=== PATIENT | male | born 1945 | race Caucasian/White ===

== ENCOUNTER 2017-09-01 07:37 | Inpatient (IN) | payer MEDICARE, MEDICAID ==
--- NOTE | 2017-09-01 08:10 | ED Physician Chart ---
ED Chief Complaint/HPI - Patient Information Date Seen:: 09/01/17 Time Seen:: 08:00 Chief Complaint:: Pt is here for G-tube replacement. History of Present Illness:: Brought in by ambulance from nursing facility because his G-tube was accidentally pulled out. A Zavala catheter was already put in place to keep gastrostomy stoma open. Pt appears to be comfortable without distress. Pt has h/ o dementia and is not cooperative; thus, H & P are limited. Info is primarily from review of limited transfer documents. Allergies:: Allergies Allergy/AdvReac Type Severity Reaction Status Date / Time Sulfa (Sulfonamide Allergy Verified 09/01/17 08:03 Antibiotics) Vitals:: see Nurse Note. Historian:: Patient Family MD/PCP:: Dr. Welch. LMP:: N/A Review:: Nurse's Note Reviewed, Transfer documents Reviewed ED Review of Systems - Review of Systems General/Constitutional: Other (Pt does not cooperate for ROS.) ED Past Medical History - Past Medical History Past Medical History: DM, CVA/TIA, Dyslipidemia, PUD/GERD, Dementia (with Alzheimer's Dz.), Other (Metaboic encephalopathy.) Family History: Other (Pt does not cooperate to provide info on FHx.) Social History: Care Facility, Other (Pt does not cooperate to provide info on SHx.) Surgical History: PEG/GTube Psychiatricy History: Dementia Medication: Reviewed Family Medical History - Family Member Father History Unknown: Yes Ethnicity: Non- Living Status: Unknown ED Physical Exam - Physical Examination General/Constitutional: Awake, Well-developed, well-nourished, No distress, Non- toxic appearing Other Gen/Cons comments:: Breathes comfortably, responds to voice and tactile stimuli. Pt is uncooperative and at times agitated. Head: Atraumatic Eyes: Lids, conjuctiva normal, PERRL, EOMI Skin: No rash, No lymphadenopathy ENMT: External ears, nose nl, Nasal exam nl, Oropharynx nl Neck: Nontender, Full ROM w/o pain, No JVD, No nuchal rigidity, No mass, No stridor Respiratory: Nl effort/Exclusion, Clear to Auscultation, No Wheeze/Rhonchi/Rales Cardio Vascular: RRR, No murmur, gallop, rubs GI: No tenderness/rebounding/guarding, No organomegaly, Nondistended, No mass/ bruits Other GI comments:: Abdomen is soft. Gastrostomy noticed with catheter in place in upper abdomen. Extremities: No tenderness or effusion, No edema Other Neuro/Psych comments:: Alert and responds to voice and tactile stimuli. Spontaneous movements noticed in all 4 extremities. Pt does not cooperate for full neurological exam. ED Labs/Radiology/EKG Results - Lab Results Results: Laboratory Tests 09/01/17 09/01/17 09/01/17 10:12 10:15 10:15 WBC 7.7 RBC 4.45 Hgb 14.3 Hct 43.3 MCV 97.3 MCH 32.0 H MCHC Differential 32.9 RDW 13.5 Plt Count 205 MPV 7.9 Neutrophils % 69.0 Lymphocytes % 23.9 Monocytes % 5.0 Eosinophils % 1.5 Basophils % 0.6 Sodium 140 Potassium 4.5 Chloride 107 Carbon Dioxide 27.1 Anion Gap 10.4 BUN 10 Creatinine 0.6 L Est GFR ( Amer) > 60.0 Est GFR (Non-Af Amer) > 60.0 BUN/Creatinine Ratio 16.7 Glucose 90 POC Glucose 89 Calcium 9.2 Total Bilirubin 0.6 AST 15 ALT 11 Alkaline Phosphatase 81 Total Protein 7.2 Albumin 3.7 L Globulin 3.5 Albumin/Globulin Ratio 1.1 ED Septic Shock - . Is Septic Shock (SBP<90, OR Lactate>4 mmol\L) present?: No ED Reassessment (Disposition) - Reassessment Reassessment:: 1045 Pt has been repeatedly evaluated. Pt was agitated earlier. Pt is now calm. Remaining lab results just became available. Admitting physician is to be contacted. 1123 Case was discussed with Dr. Nur with pertinent H & P and lab findings reviewed. Pt is to be admitted to [facility] for observation under his care. Reassessment Condition:: Improved - Diagnosis Diagnosis:: G-tube dislodgement. Diabetes mellitus. Stable. Dementia with Alzheimer's disease by hx. Stable. - Patient Disposition Admitted to:: Med/Surg Admitting Medical Physician:: Adolph Nur Time:: 11:25 Condition at Disposition:: Stable, Improved
[2017-09-01 10:26] LABS: % BASOPHILS 0.6 % (0.0-2.0); % EOSINOPHILS 1.5 % (0.0-5.0); % LYMPHOCYTES 23.9 % (20.0-50.0); HEMATOCRIT 43.3 % (41.0-60); HEMOGLOBIN 14.3 gm/dL (12-16); MEAN CELL VOLUME 97.3 fl (80-99); MEAN CORPUSCULAR HGB CONC 32.9 pg (28.0-36.0); MEAN PLATELET VOLUME 7.9 fl; NEUTROPHILE ABSOLUTE 5.4 Th/cmm (1.8-8.0); PLATELET COUNT 205 Th/cmm (150-400); RED BLOOD COUNT 4.45 Mil/cmm (3.80-5.80); RED CELL DISTRIBUTION WIDTH 13.5 % (11.5-20.0); WHITE BLOOD COUNT 7.7 Th/cmm (4.8-10.8)
[2017-09-01 10:41] LABS: INR 0.97 (0.5-1.4); PROTHROMBIN TIME (TEST) 10.1 SECONDS (9.5-11.5)
[2017-09-01 10:46] LABS: ALB/GLOB RATIO 1.1 (1.0-1.8); ALKALINE PHOSPHATASE 81 U/L (34-104); ANION GAP 10.4 (7.0-16.0); BILIRUBIN,TOTAL 0.6 mg/dL (0.3-1.0); BUN - UREA NITROGEN 10 mg/dL (7-25); BUN/CREATININE RATIO 16.7; CALCIUM SERUM 9.2 mg/dL (8.6-10.3); CARBON DIOXIDE 27.1 mEq/L (21.0-31.0); CHLORIDE 107 mEq/L (98-107); CREATININE - SERUM 0.6 mg/dL (0.7-1.3); GLUCOSE 90 mg/dL (70-105); POTASSIUM SERUM 4.5 mEq/L (3.5-5.1); SGOT 15 U/L (13-39); SGPT/ALT 11 U/L (7-52); SODIUM SERUM 140 mEq/L (136-145)
[2017-09-01] MEDS ORDERED: Non-Formulary Item 1 EA (Acetaminophen [Acetaminophen] 650 MG) GT PRN (12:11)
[2017-09-01] MEDS ORDERED: Magnesium Hydroxide (MOM) 30 mL UDC GT PRN (12:11)
[2017-09-01] MEDS ORDERED: Albuterol Nebulizer 2.5mg/3mL HHN PRN (12:13)
[2017-09-01] MEDS ORDERED: guaiFENesin 200 MG/10 ML UDC PO PRN (12:13)
[2017-09-01] MEDS ORDERED: Ipratropium Neb 0.5 mg/2.5 mL UD IH PRN (12:13)
[2017-09-01] MEDS ORDERED: Maalox 30 mL Cup PO PRN (12:13)
[2017-09-01] MEDS ORDERED: Probiotic Screen MC PRN (14:40)
[2017-09-01] MEDS: Docusate Sodium 100 mg/10 mL UD GT SCH (16:39)
[2017-09-01] MEDS ORDERED: Non-Formulary Item 1 EA (Valproic Acid (As Sodium Salt) [Depakene] 500 MG) GT SCH (17:00)
[2017-09-01] MEDS ORDERED: DOCUSATE SODIUM 100 MG GT SCH (17:00)
[2017-09-01] MEDS: INSULIN ASPART, RECOMBINANT 100 UNITS/ML SUBQ SCH ×2 (18:10→20:25)
[2017-09-01] MEDS ORDERED: Haloperidol Lactate 5 mg/mL 1mL Vial IM ONE (19:09)
[2017-09-01] MEDS: D5-0.45NS 1,000 ML IV SCH (21:22)
[2017-09-02] MEDS: INSULIN ASPART, RECOMBINANT 100 UNITS/ML SUBQ SCH ×4 (07:38→22:17)
[2017-09-02] MEDS ORDERED: Multivitamin w/ Minerals Tab GT SCH (09:00)
[2017-09-02] MEDS ORDERED: Aspirin 81mg Chewable Tab GT SCH (09:00)
[2017-09-02] MEDS ORDERED: Pantoprazole 40 mg EC Tab PO SCH (09:00)
[2017-09-02] MEDS: Docusate Sodium 100 mg/10 mL UD GT SCH ×2 (09:28→17:06)
--- NOTE | 2017-09-02 09:33 | Internal Medicine Prog Note ---
Internal Medicine Subjective - Subjective Service Date: 09/02/17 ([id number] [facility] ) Internal Medicine Objective - Results Result Diagrams: 09/01/17 10:15 09/01/17 10:15 Recent Labs: Laboratory Last Values WBC 7.7 Th/cmm (4.8-10.8) 09/01/17 10:15 RBC 4.45 Mil/cmm (3.80-5.80) 09/01/17 10:15 Hgb 14.3 gm/dL (12-16) 09/01/17 10:15 Hct 43.3 % (41.0-60) 09/01/17 10:15 MCV 97.3 fl (80-99) 09/01/17 10:15 MCH 32.0 pg (27.0-31.0) H 09/01/17 10:15 MCHC Differential 32.9 pg (28.0-36.0) 09/01/17 10:15 RDW 13.5 % (11.5-20.0) 09/01/17 10:15 Plt Count 205 Th/cmm (150-400) 09/01/17 10:15 MPV 7.9 fl 09/01/17 10:15 Neutrophils % 69.0 % (40.0-80.0) 09/01/17 10:15 Lymphocytes % 23.9 % (20.0-50.0) 09/01/17 10:15 Monocytes % 5.0 % (2.0-10.0) 09/01/17 10:15 Eosinophils % 1.5 % (0.0-5.0) 09/01/17 10:15 Basophils % 0.6 % (0.0-2.0) 09/01/17 10:15 PT 10.1 SECONDS (9.5-11.5) 09/01/17 10:15 INR 0.97 (0.5-1.4) 09/01/17 10:15 PTT (Actin FS) 25.5 SECONDS (26.0-38.0) L 09/01/17 10:15 Sodium 140 mEq/L (136-145) 09/01/17 10:15 Potassium 4.5 mEq/L (3.5-5.1) 09/01/17 10:15 Chloride 107 mEq/L (98-107) 09/01/17 10:15 Carbon Dioxide 27.1 mEq/L (21.0-31.0) 09/01/17 10:15 Anion Gap 10.4 (7.0-16.0) 09/01/17 10:15 BUN 10 mg/dL (7-25) 09/01/17 10:15 Creatinine 0.6 mg/dL (0.7-1.3) L 09/01/17 10:15 Est GFR ( Amer) > 60.0 ml/min (>90) 09/01/17 10:15 Est GFR (Non-Af Amer) > 60.0 ml/min 09/01/17 10:15 BUN/Creatinine Ratio 16.7 09/01/17 10:15 Glucose 90 mg/dL (70-105) 09/01/17 10:15 POC Glucose 87 MG/DL (70 - 105) 09/02/17 06:49 Calcium 9.2 mg/dL (8.6-10.3) 09/01/17 10:15 Total Bilirubin 0.6 mg/dL (0.3-1.0) 09/01/17 10:15 AST 15 U/L (13-39) 09/01/17 10:15 ALT 11 U/L (7-52) 09/01/17 10:15 Alkaline Phosphatase 81 U/L (34-104) 09/01/17 10:15 Total Protein 7.2 gm/dL (6.0-8.3) 09/01/17 10:15 Albumin 3.7 gm/dL (4.2-5.5) L 09/01/17 10:15 Globulin 3.5 gm/dL 09/01/17 10:15 Albumin/Globulin Ratio 1.1 (1.0-1.8) 09/01/17 10:15 - Physical Exam Vitals and I&O: Vital Signs Temp 98.2 F 09/02/17 04:00 Pulse 90 09/02/17 08:06 Resp 14 09/02/17 08:06 BP 115/67 09/02/17 04:00 Pulse Ox 100 09/02/17 08:06 Intake & Output 09/01/17 09/02/17 09/02/17 18:59 06:59 18:59 Intake Total 0 0 Balance 0 0 Weight (lbs) 122 lb 122 lb Intake: Oral 0 0 Other: # Voids 3 2 # Bowel Movements 0 0 Active Medications: Current Medications Acetaminophen (Tylenol 650mg/20.3ml Suspension) 650 mg GT Q4HR PRN PRN Reason: Pain (Mild) Stop: 10/31/17 12:21 Al Hydrox/Mg Hydrox/Simethicone (Maalox) 30 ml PO Q6H PRN PRN Reason: Dyspepsia Stop: 10/31/17 12:12 Albuterol Sulfate (Albuterol 2.5mg/3ml Neb Ud) 2.5 mg HHN Q2HRT PRN PRN Reason: Shortness of Breath or Wheeze Stop: 10/31/17 12:12 Aspirin (Aspirin Chewable) 81 mg GT DAILY [facility] Stop: 11/01/17 08:59 Last Admin: 09/02/17 09:28 Dose: Not Given Carbidopa/Levodopa (Sinemet 25mg-100 Mg) 1 tab PO TID [facility] Stop: 10/31/17 13:59 Last Admin: 09/02/17 09:28 Dose: Not Given Docusate Sodium (Colace) 100 mg GT BID [facility] Stop: 10/31/17 16:59 Last Admin: 09/02/17 09:28 Dose: Not Given Guaifenesin (Robitussin) 200 mg PO Q4HR PRN PRN Reason: Cough or Congestion Stop: 10/31/17 12:12 Heparin Sodium (Porcine) (Heparin) 5,000 units SUBQ Q12HR [facility] Stop: 10/31/17 20:59 Last Admin: 09/01/17 21:23 Dose: 5,000 units Dextrose/Sodium Chloride (D5-0.45ns) 1,000 mls @ 80 mls/hr IV .[id number] [facility] Stop: 10/31/17 12:14 Last Admin: 09/01/17 21:22 Dose: 80 mls/hr Insulin Aspart (Novolog) 0 units SUBQ ACHS JOSÉ LUIS PRN Reason: Protocol Stop: 10/31/17 16:29 Last Admin: 09/02/17 07:38 Dose: Not Given Ipratropium [place] (Atrovent Neb 0.5mg/2.5ml) 0.5 mg IH Q2HRT PRN PRN Reason: Shortness of Breath or Wheeze Stop: 10/31/17 12:12 Magnesium Hydroxide (Milk Of Magnesia) 30 ml GT HS PRN PRN Reason: Constipation Stop: 10/31/17 12:10 Miscellaneous (Pimavanserin Tartrate [Nuplazid]) 34 mg GT DAILY [facility] Stop: 11/01/17 08:59 Miscellaneous (Probiotic Screen) 1 ea [facility] PRN PRN PRN Reason: PROTOCOL Stop: 10/31/17 14:39 Ondansetron HCl (Zofran) 4 mg IV Q8H PRN PRN Reason: Nausea / Vomiting Stop: 10/31/17 12:12 Pantoprazole Sodium (Protonix) 40 mg PO DAILY [facility] Stop: 11/01/17 08:59 Last Admin: 09/02/17 09:28 Dose: Not Given Valproate Sodium (Depakene) 500 mg GT BID [facility] Stop: 10/31/17 16:59 Last Admin: 09/02/17 09:28 Dose: Not Given - Procedures Procedures: Procedures Procedure Code Date GROUP PSYCHOTHERAPY 32186 11/29/15 GROUP PSYCHOTHERAPY [id number] 11/29/15 OTHER GROUP THERAPY 94.44 01/15/13 RECREATIONAL THERAPY 93.81 05/12/12 Internal Medicine Assmt/Plan - Assessment Assessment: GT MALFUNCTION AGITATION MILD PROTEIN CALORIE MALNUTRITION DM-2 PARKINSON'S DYSPHAGIA DEMENTIA HYPERLIPIDEMIA GERD OA AHD DNR STATUS
--- NOTE | 2017-09-02 10:08 | History & Physical ---
ADMIT DATE: 09/01/2017 DICTATED FOR: Dr. Adolph Nur CHIEF COMPLAINT: G-tube malfunction. HISTORY OF PRESENT ILLNESS: This is a 72-year-old male who is a resident of [facility], who was brought here to [facility] due to G-tube malfunction. According to nursing staff at [place], the patient apparently pulled out his G-tube accidentally, they replaced the patient's G-tube with a Zavala catheter to have a stoma open. Due to the following reasons, the patient is now admitted to the med/surg unit. PAST MEDICAL HISTORY: Parkinson's, dysphagia, convulsions, polymyalgia rheumatica, metabolic encephalopathy, type 2 diabetes, dementia, history of TIA and cerebral infarction, Alzheimer's, osteoporosis, hyperlipidemia, GERD, AHD, psychosis, and osteoarthritis. PAST SURGICAL HISTORY: PEG. FAMILY HISTORY: Noncontributory. SOCIAL HISTORY: The patient is a detention resident, requiring 24-hour nursing care. MEDICATIONS: Aspirin, Depakene, docusate, multivitamins, pimavanserin tartrate, Protonix, Sinemet. REVIEW OF SYSTEMS: Unable to obtain due to the patient's mental status. The patient is confused. PHYSICAL EXAMINATION: GENERAL: This is an elderly male, awake, confused, in no apparent distress. VITAL SIGNS: Temperature 98.2, heart rate 78, blood pressure 150/67, respirations 18, O2 98%. HEENT: Head; normocephalic, atraumatic. NECK: Supple. No mass. LUNGS: Clear bilaterally. HEART: Regular rhythm. ABDOMEN: Soft, nontender. SKIN: Noted with few excoriations. LABORATORY RESULTS: WBC 7.7, H and H 14.3 and 43.3, platelet of 205. Sodium 140, potassium 4.5, chloride 107, BUN 10, creatinine 0.6. Albumin 3.7. ASSESSMENT: 1. G-tube malfunction. 2. Agitation. 3. Mild protein calorie malnutrition. 4. Parkinson's. 5. Dysphagia. 6. Type 2 diabetes. 7. Alzheimer's. 8. Osteoporosis. 9. Hyperlipidemia. 10. GERD. 11. Atherosclerotic heart disease. 12. Convulsions. PLAN: The patient to be admitted to the med/surg unit. We will get GI consult. We will keep the patient n.p.o. for now. We will keep the patient hydrated with IV fluids. We will monitor the patient's electrolyte levels, get a psychiatric on the case, 1:1 sitter for safety. Seizure precautions will be initiated. We will continue to monitor this patient. JOB# [id number]
[2017-09-02] MEDS: D5-0.45NS 1,000 ML IV SCH (11:22)
[2017-09-02] MEDS ORDERED: Diatrizoate Meglumine/Diatri 30 mL Sol PO ONE (14:15)
[2017-09-02] MEDS ORDERED: VTE Chemical Prophylaxis Screen/Admission MC PRN (14:26)
--- NOTE | 2017-09-02 15:33 | Diagnostic Imaging Report ---
Upper GI (Limited) HISTORY: Gastrostomy tube placement Water-soluble contrast was instilled through patient's gastrostomy tube. The exam demonstrates opacification of the gastric lumen. IMPRESSION: 1. Confirmation of gastrostomy tube within the gastric lumen
--- NOTE | 2017-09-02 20:11 | Consultation ---
DATE OF CONSULTATION: 09/02/2017 INPATIENT GASTROINTESTINAL CONSULTATION REFERRING PHYSICIAN: Dr. Nur. REASON FOR CONSULTATION: Malfunctioning G-tube and dysphagia. HISTORY: This is a 72-year-old male who was brought to the hospital because the G-tube was malfunctioning. The patient apparently had pulled it out and then replaced it with a Zavala tube. The patient is otherwise a poor historian. PAST MEDICAL HISTORY: Parkinson's, dysphagia, polymyalgia rheumatica, encephalopathy, diabetes, dementia, TIA, stroke, Alzheimer's, osteoporosis, hyperlipidemia, GERD, psychosis, osteoarthritis. PAST SURGICAL HISTORY: PEG tube. FAMILY HISTORY: Noncontributory. SOCIAL HISTORY: Resident of skilled facility. ALLERGIES: SULFA. CURRENT MEDICATIONS: Tylenol, Maalox, aspirin, Sinemet, Colace, Robitussin, heparin, insulin, milk of magnesia, Zofran, Protonix, Depakote. REVIEW OF SYSTEMS: Unobtainable. PHYSICAL EXAMINATION: VITAL SIGNS: Temperature 97.1, breathing 18, pulse 87, blood pressure 122/69, satting 98%. GENERAL: In no apparent distress. EYES: Anicteric. Normal conjunctivae. HEENT: Normocephalic, atraumatic. Moist mucous membranes. NECK: Soft, supple. CHEST: Clear. No effort. CARDIOVASCULAR: Regular rate and rhythm. ABDOMEN: Soft, nontender, nondistended with G-tube. SKIN: Warm, dry. EXTREMITIES: Reveal no cyanosis. PSYCHOLOGICAL: Is awake. LABORATORY DATA: Show normal LFTs. White count 7.7, hemoglobin 14.3, platelets of 205. INR 0.97. IMPRESSION: This is a 72-year-old male with underlying history of dysphagia, has malfunctioning G-tube, will need to have a replacement. G-tube will be changed at bedside. Continue supportive care. Thank you for allowing me to participate. Please call me if any questions. JOB# [id number]
--- NOTE | 2017-09-02 21:00 | Consultation ---
DATE OF CONSULTATION: 09/02/2017 INPATIENT GASTROINTESTINAL PROCEDURE NAME OF PROCEDURE: G-tube change. REFERRING PHYSICIAN: Dr. Nur. REASON FOR PROCEDURE: Malfunctioning G-tube, dysphagia. PREOPERATIVE DIAGNOSIS: Malfunctioning G-tube, dysphagia. POSTOPERATIVE DIAGNOSIS: [id number] gastrostomy tube placed. PROCEDURE: The patient was placed on his back. The old G-tube site was identified with a Zavala tube. The internal balloon was deflated and pulled out. At this point, a new 22-Frisian gastrostomy tube was lubricated at the tip and inserted through the gastrocutaneous fistula entering into stomach lumen. Internal balloon was inflated with 15 mL of sterile saline. The outer phalange was secured in position. Procedure was then completed. COMPLICATIONS: None. FINDINGS: New 22-Frisian gastrostomy tube placed. RECOMMENDATION: 1. KUB with Gastrografin confirmed placement. 2. If it is in the stomach, may begin using it. 3. Check residual every 6 hours and hold if greater than 100 mL. 4. Abdominal binder to protect the G-tube. Thank you for allowing me to participate. Please call me if any questions. JOB# [id number]
--- NOTE | 2017-09-09 10:48 | History & Physical ---
ADMIT DATE: 09/01/2017 CHIEF COMPLAINT: Increasing agitation, has now pulled out the G-tube, unable to take medication. HISTORY OF PRESENT ILLNESS: This is a 72-year-old male with history of seizure, stroke, diabetes, hypercholesterolemia, Parkinson's, Alzheimer's, admitted from nursing facility secondary to agitation, apparently managed to pull out the G-tube, unable to put in, in the nursing facility as well as in the ER. The patient admitted for further management. PAST MEDICAL HISTORY: As mentioned in history present of illness. PAST SURGICAL HISTORY: Status post G-tube. ALLERGIES: PER CHART SULFA MEDICATIONS. MEDICATIONS: The patient is on Tylenol, aspirin, Sinemet, Colace, magnesium, multivitamins, pantoprazole, ____, Depakote. FAMILY HISTORY: Noncontributory. SOCIAL HISTORY: The patient is a half-way patient, requiring 24-hour total care. REVIEW OF SYSTEMS: This is limited secondary to the patient's current mental state. We will try to obtain more detailed review of systems at a later date by talking to family members. There was a relative [phone] has the power of commonwealth attorney. We will also try to get information from nursing staff at [facility] #[phone] as well as from ____ who normally follows the patient. PHYSICAL EXAMINATION: VITAL SIGNS: Blood pressure 101/60, respiration 14, pulse ____, temperature ____. GENERAL: Elderly male, appears stated age, chronically ill. NECK: Supple. No mass. LUNGS: Equal breath sounds, few rhonchi. HEART: Regular rate and rhythm. Systolic ejection murmur. ABDOMEN: Soft, globular with G-tube, Zavala in place. EXTREMITIES: Positive excoriation, atrophic contractures. NEUROLOGIC: Limited. LABORATORY DATA: WBC 7.7, hemoglobin 14, platelets 205. Sodium 140, potassium 4.5, BUN 10, creatinine 0.6, albumin 2.7. ASSESSMENT AND PLAN: Agitation, dehydration ____, inability to take medication, malfunctioning G-tube, seizure, stroke, diabetes, Alzheimer's dementia, hypercholesterolemia, Parkinson's, ____ mild protein-calorie malnutrition. We will continue the patient on IV hydration. We will correct electrolyte abnormalities. Continue insulin sliding scale. We will provide the patient with anxiolytic and refer the patient to GI and Psychiatry. We will follow the patient closely. JOB# [id number]
== END 2017-09-02 22:06 | DRG 394 ==
LOC: ER 07:37 → MSI 11:20
PROVIDERS: ADMIT Internal Medicine; ATTEND Internal Medicine
PROC: 0D20XUZ Change Feeding Device in Upper Intestinal Tract, External Approach (ICD-10-PCS; principal; 2017-09-02)
DX: K94.23 Gastrostomy malfunction (principal); E44.1 Mild protein-calorie malnutrition; G20 Parkinson's disease; R56.9 Unspecified convulsions; Z68.1 Body mass index [BMI] 19.9 or less, adult; E11.9 Type 2 diabetes mellitus without complications; G30.9 Alzheimer's disease, unspecified; F02.80 Dementia in other diseases classified elsewhere, unspecified severity, without behavioral disturbance, psychotic disturbance, mood disturbance, and anxiety; K21.9 Gastro-esophageal reflux disease without esophagitis; E78.5 Hyperlipidemia, unspecified; Z66 Do not resuscitate; Y83.8 Other surgical procedures as the cause of abnormal reaction of the patient, or of later complication, without mention of misadventure at the time of the procedure; M35.3 Polymyalgia rheumatica; M81.0 Age-related osteoporosis without current pathological fracture; M19.90 Unspecified osteoarthritis, unspecified site; I25.10 Atherosclerotic heart disease of native coronary artery without angina pectoris; F90.9 Attention-deficit hyperactivity disorder, unspecified type; Z88.2 Allergy status to sulfonamides; Y92.89 Other specified places as the place of occurrence of the external cause; Z86.73 Personal history of transient ischemic attack (TIA), and cerebral infarction without residual deficits
CPT/HCPCS: 36415-UA; 80053-TC; 82948-90; 85025-TC; 85610-TC; 94760; J1200; J1630; J1644; J1815; J2060; Z7610

== ENCOUNTER 2018-02-21 12:29 | Inpatient (IN) | payer MEDICARE, MEDICAID ==
--- NOTE | 2018-02-21 13:06 | ED Physician Chart ---
ED Chief Complaint/HPI - Patient Information Date Seen:: 02/21/18 Time Seen:: 13:06 Chief Complaint:: Increased agitation History of Present Illness:: 72 yo male was brought from SNF to ER for evaluation of increased agitation and aggressiveness. Patient was extremely combative in the ER. Allergies:: Allergies Allergy/AdvReac Type Severity Reaction Status Date / Time Sulfa (Sulfonamide Allergy Verified 09/01/17 08:03 Antibiotics) Vitals:: Vital Signs - 8 hr 02/21/18 12:47 Temp 97.9 F HR 70 RR 18 BP 124/70 O2 Sat % 100 ED Review of Systems - Review of Systems General/Constitutional: No fever Skin: No bruising Head: No headache Eyes: No pain ENT: No nasal drainage Neck: No neck pain Cardio Vascular: No chest pain Pulmonary: No SOB GI: No nausea, No vomiting Musculoskeletal: No bone or joint pain Psychiatric: Prior psych history, Depression, Other (Agitation) Neurological: No syncope ED Past Medical History - Past Medical History Past Medical History: DM, CAD, CVA/TIA, Dyslipidemia, PUD/GERD, Arthritis, Dementia, Other (Parkinson's disease, metabolic encephalopathy) Social History: Non Smoker, No Alcohol, No Drug Use Surgical History: PEG/GTube Psychiatricy History: Other (Psychosis) Family Medical History - Family Member Father History Unknown: Yes Ethnicity: Unknown Living Status: Unknown Hx Family Cancer: No Hx Family Coronary Artery Disease: No Hx Family Congestive Heart Failure: No Hx Family Hypertension: No Hx Family Stroke: No Hx Family Diabetes: No Hx Family Seizures: No Hx Family Dementia: No Hx Family AIDS: No Hx Family HIV: No Hx Family COPD: No Hx Family Hepatitis: No Hx Family Psychiatric Problems: No Hx Family Tuberculosis: No ED Physical Exam - Physical Examination General/Constitutional: Awake, Alert Head: Atraumatic Eyes: PERRL Skin: No ecchymosis ENMT: Nasal exam nl Neck: No nuchal rigidity Respiratory: No Wheeze/Rhonchi/Rales Cardio Vascular: RRR, No murmur, gallop, rubs, NL S1 S2 Other GI comments:: G-tube stoma closed and dry Extremities: normal strength in all extremities Neuro/Psych: No focal deficits ED Labs/Radiology/EKG Results - Lab Results Results: Laboratory Last Values WBC 7.9 Th/cmm (4.8-10.8) 02/21/18 15: RBC 4.66 Mil/cmm (3.80-5.80) 02/21/18 15: Hgb 14.9 gm/dL (12-16) 02/21/18 15: Hct 44.9 % (41.0-60) 02/21/18 15: MCV 96.3 fl (80-99) 02/21/18 15: MCH 32.0 pg (27.0-31.0) H 02/21/18: MCHC Differential 33.3 pg (28.0-36.0) 02/21/18: RDW 13.2 % (11.5-20.0) 02/21/18: Plt Count 320 Th/cmm (150-400) 02/21/18: MPV 7.0 fl 02/21/18: Neutrophils % 63.5 % (40.0-80.0) 02/21/18: Lymphocytes % 29.1 % (20.0-50.0) 02/21/18: Monocytes % 4.4 % (2.0-10.0) 02/21/18: Eosinophils % 2.3 % (0.0-5.0) 02/21/18: Basophils % 0.7 % (0.0-2.0) 02/21/18 15: Sodium 139 mEq/L (136-145) 02/21/18 15: Potassium 5.3 mEq/L (3.5-5.1) H 02/21/18: Chloride 101 mEq/L (98-107) 02/21/18: Carbon Dioxide 28.4 mEq/L (21.0-31.0) 02/21/18 15: Anion Gap 14.9 (7.0-16.0) 02/21/18: BUN 12 mg/dL (7-25) 02/21/18: Creatinine 0.7 mg/dL (0.7-1.3) 02/21/18 15: Est GFR ( Amer) > 60.0 ml/min (>90) 02/21/18: Est GFR (Non-Af Amer) > 60.0 ml/min 02/21/18 15:31 BUN/Creatinine Ratio 17.1 02/21/18 15:31 Glucose 134 mg/dL (70-105) H 02/21/18 15:31 Calcium 9.8 mg/dL (8.6-10.3) 02/21/18 15:31 Magnesium 2.3 mg/dL (1.9-2.7) 02/21/18 15:31 Total Bilirubin 0.2 mg/dL (0.3-1.0) L 02/21/18 15:31 AST 12 U/L (13-39) L 02/21/18 15:31 ALT 12 U/L (7-52) 02/21/18 15:31 Alkaline Phosphatase 83 U/L (34-104) 02/21/18 15:31 Troponin I < 0.01 ng/mL (0.01-0.05) L 02/21/18 15:31 B-Natriuretic Peptide 43.8 pg/mL (5.0-100.0) 02/21/18 15:31 Total Protein 7.6 gm/dL (6.0-8.3) 02/21/18 15:31 Albumin 3.9 gm/dL (4.2-5.5) L 02/21/18 15:31 Globulin 3.7 gm/dL 02/21/18 15:31 Albumin/Globulin Ratio 1.1 (1.0-1.8) 02/21/18 15:31 TSH 1.11 uIU/ml (0.34-5.60) 02/21/18 15:31 - Radiology Results Results: CXR: no focal consolidation ED Assessment - Assessment General Assessment: DM II Parkinson's disease Metabolic encephalopathy Psychosis Assessment/Comments:: CBC, CMP, Trop I, UA EKG (patient refused) CXR Haldol IM Benadryl IM Ativan IM Admit to geropsych unit ED Septic Shock - . Is Septic Shock (SBP<90, OR Lactate>4 mmol\L) present?: No - <6hrs of presentation: Vital Signs: Vital Signs - 8 hr 02/21/18 12:47 Temp 97.9 F HR 70 RR 18 BP 124/70 O2 Sat % 100 ED Reassessment (Disposition) - Reassessment Reassessment Condition:: Improved - Patient Disposition Discharge/Transfer:: [facility] w/in this hosp Admitting Medical Physician:: Kayode Mandujano Admitting Psych Physician:: Jeff Stephens ED Discharge Plan - Patient Disposition Admit/Discharge/Transfer: Other Care w/in this hosp Condition at Disposition: Stable
--- NOTE | 2018-02-21 13:25 | Diagnostic Imaging Report ---
Portable chest x-ray History: Cough Allowing for portable technique the heart size is normal. No focal pulmonary parenchymal processes. No hilar or mediastinal abnormalities. Impression: No acute abnormalities.
[2018-02-21] MEDS ORDERED: Haloperidol Lactate 5 mg/mL 1mL Vial ONE (14:32)
[2018-02-21] MEDS ORDERED: Haloperidol Lactate 5 mg/mL 1mL Vial IM STA (14:48)
[2018-02-21 15:39] LABS: % BASOPHILS 0.7 % (0.0-2.0); % EOSINOPHILS 2.3 % (0.0-5.0); % LYMPHOCYTES 29.1 % (20.0-50.0); % MONOCYTES 4.4 % (2.0-10.0); % NEUTROPHILS 63.5 % (40.0-80.0); BASOPHILE ABSOLUTE 0.1 Th/cumm (0-0.2); EOSINOPHILE ABSOLUTE 0.2 Th/cmm (0.1-0.4); HEMATOCRIT 44.9 % (41.0-60); HEMOGLOBIN 14.9 gm/dL (12-16); LYMPHOCYTE ABSOLUTE 2.3 Th/cmm (1.5-3.0); MEAN CELL VOLUME 96.3 fl (80-99); MEAN CORPUSCULAR HGB CONC 33.3 pg (28.0-36.0); MONOCYTE ABSOLUTE 0.3 Th/cmm (0.3-1.0); PLATELET COUNT 320 Th/cmm (150-400); RED BLOOD COUNT 4.66 Mil/cmm (3.80-5.80); RED CELL DISTRIBUTION WIDTH 13.2 % (11.5-20.0); WHITE BLOOD COUNT 7.9 Th/cmm (4.8-10.8)
[2018-02-21 15:59] LABS: ALB/GLOB RATIO 1.1 (1.0-1.8); ALBUMIN 3.9 gm/dL (4.2-5.5); ALKALINE PHOSPHATASE 83 U/L (34-104); ANION GAP 14.9 (7.0-16.0); BILIRUBIN,TOTAL 0.2 mg/dL (0.3-1.0); BUN - UREA NITROGEN 12 mg/dL (7-25); CALCIUM SERUM 9.8 mg/dL (8.6-10.3); CARBON DIOXIDE 28.4 mEq/L (21.0-31.0); CHLORIDE 101 mEq/L (98-107); CREATININE - SERUM 0.7 mg/dL (0.7-1.3); GFR AFRICAN-AMERICAN > 60.0 ml/min (>90); GFR NON AFRICAN-AMERICAN > 60.0 ml/min; GLUCOSE 134 mg/dL (70-105); MAGNESIUM 2.3 mg/dL (1.9-2.7); POTASSIUM SERUM 5.3 mEq/L (3.5-5.1); SGOT 12 U/L (13-39); SGPT/ALT 12 U/L (7-52); SODIUM SERUM 139 mEq/L (136-145); TOTAL PROTEIN,SERUM 7.6 gm/dL (6.0-8.3)
[2018-02-21 17:38] VITALS: BP 105/62
[2018-02-21] MEDS ORDERED: Magnesium Hydroxide (MOM) 30 mL UDC PO PRN (19:51)
--- NOTE | 2018-02-21 21:09 | History & Physical ---
ADMIT DATE: CHIEF COMPLAINT: Psychosis. HISTORY OF PRESENT ILLNESS: The patient is a 72-year-old male with long history of dementia, psychosis, Parkinson's disease, and degenerative joint disease, admitted to [facility] for evaluation and treatment. The patient is a poor historian. PAST MEDICAL HISTORY: Parkinson's disease, degenerative joint disease, dementia, and psychosis. PAST SURGICAL HISTORY: No recent surgery. ALLERGIES: SULFA. SOCIAL HISTORY: No alcohol, drug. FAMILY HISTORY: Noncontributory. REVIEW OF SYSTEMS: RENAL SYSTEM: No history of chronic renal disorder. CARDIOVASCULAR SYSTEM: No coronary artery disease. ENDOCRINE SYSTEM: No diabetes or thyroid problem. GASTROINTESTINAL SYSTEM: No upper or lower GI bleed. NEUROLOGICAL SYSTEM: No seizure disorder. SKELETOMUSCULAR SYSTEM: No muscular dystrophy. HEMATOLOGICAL SYSTEM: No bleeding tendencies. RESPIRATORY SYSTEM: No asthma. GENITOURINARY SYSTEM: No dysuria or hematuria. PHYSICAL EXAMINATION: GENERAL: He is awake, not coherent. VITAL SIGNS: Temperature 97.1, heart rate 74, and blood pressure 101/53. HEENT: Normocephalic. Pupils are reactive to light and accommodation. Sclerae clear. NECK: Supple. Negative for lymphadenopathy, JVD, or bruit. CHEST: Entry of air bilateral normal. No rales, rhonchi, or wheezing. HEART: S1 and S2 normal. No murmur or gallop rhythm. ABDOMEN: Soft. Bowel sounds positive. EXTREMITIES: No edema. BACK: No tenderness. SKIN: Intact. NEUROLOGIC: He is awake, not coherent. No focal motor or sensory deficit. ASSESSMENT: 1. Parkinson's disease. 2. Degenerative joint disease. 3. Psychosis. 4. Dementia. PLAN: The patient admitted to the hospital under Dr. Stephens's service. The medical problem to be addressed during hospitalization is psychosis, dementia. Medical problems to be addressed at discharge is Parkinson's disease. The patient is medically stable for activity. Thank you, Dr. Stephens for asking me to see your patient. JOB# [id number]
[2018-02-22] MEDS: Multivitamin Tab PO SCH (08:18)
--- NOTE | 2018-02-22 13:05 | Psychosocial Evaluation ---
DATE OF SERVICE: 02/22/2018 IDENTIFYING DATA: The patient is a 72-year-old male, resident of the [facility]. Information obtained by directly interviewing the patient as well as reviewing the admission papers and they are reliable. JUSTIFICATION FOR HOSPITALIZATION: The patient is admitted here on a voluntary basis in view of his agitation and disruptive behavior. CHIEF COMPLAINT: "I do not know why I have to be here." HISTORY OF PRESENT ILLNESS: This is one of multiple psychiatric hospitalizations for this patient who is known to me from the previous psychiatric hospitalizations and treatments. The patient on the day of the hospitalization is reported to have been very agitated and has been getting easily upset. The patient has been also reported to be sexually preoccupied and wants a female staff to be there in his room. The patient has been diagnosed to have psychotic disorder, not otherwise specified and has been followed up by Dr. Klein on an outpatient basis. The patient at the time of the evaluation has been getting easily irritable, angry and patient has been testing the limits. The patient is reported to be very disorganized and the patient could not be contained at a lower level of care and hence the patient has been referred over here for stabilization. Sleep and appetite prior to the hospitalization are reported to be poor. PAST PSYCHIATRIC HISTORY: Please refer to the above. MEDICAL HISTORY: Physical examination is requested to be done by Dr. Mandujano and is noted to be significant for Parkinson's disease and degenerative joint disease. PHYSICAL OR SEXUAL ABUSE HISTORY: None. LEGAL PROBLEMS: None at this time. STRENGTH AND ASSETS: The patient is motivated. MENTAL STATUS EXAMINATION: The patient is a 72-year-old, looking his stated age, thin built, superficially cooperative. Eye contact is poor. Mood is noted to be irritable. Affect is constricted. Insight and judgment at this time are noted to be impaired. Impulse control is noted to be poor. The patient is sexually preoccupied. The patient has been insisting on a female to be in his room and the patient has not been displaying any judgment. The patient is also noted to be paranoid. The patient could not be contained at a lower level of care. The patient, however, is noted to be alert and aware that he is in the hospital. Attention span and concentration noted to be poor. DIAGNOSTIC IMPRESSION: AXIS I: Psychotic disorder, not otherwise specified. AXIS II: None. AXIS III: Parkinson's disease. IMMEDIATE TREATMENT PLAN: The patient is going to be continued on Depakote and low dose of Seroquel is going to be added to ____ irritability and mood swings and the patient is going to be followed up with the supportive therapy. ESTIMATED LENGTH OF STAY: 5-7 days. DISCHARGE CRITERIA: When he no longer threat to self or others and be able to cope up with the stress. [facility]# [id number]
--- NOTE | 2018-02-22 16:52 | General Progress Note ---
Subjective - Review of Systems Service Date: 02/22/18 Subjective: resting comfortably in gerichair no distress Objective - Results Result Diagrams: 02/21/18 15:31 02/21/18 15: Recent Labs: Laboratory Last Values WBC 7.9 Th/cmm (4.8-10.8) 02/21/18 15: RBC 4.66 Mil/cmm (3.80-5.80) 02/21/18 15: Hgb 14.9 gm/dL (12-16) 02/21/18 15: Hct 44.9 % (41.0-60) 02/21/18 15: MCV 96.3 fl (80-99) 02/21/18 15: MCH 32.0 pg (27.0-31.0) H 02/21/18 15: MCHC Differential 33.3 pg (28.0-36.0) 02/21/18 15: RDW 13.2 % (11.5-20.0) 02/21/18 15: Plt Count 320 Th/cmm (150-400) 02/21/18 15: MPV 7.0 fl 02/21/18 15: Neutrophils % 63.5 % (40.0-80.0) 02/21/18: Lymphocytes % 29.1 % (20.0-50.0) 02/21/18 15: Monocytes % 4.4 % (2.0-10.0) 02/21/18 15: Eosinophils % 2.3 % (0.0-5.0) 02/21/18: Basophils % 0.7 % (0.0-2.0) 02/21/18 15: Sodium 139 mEq/L (136-145) 02/21/18 15: Potassium 5.3 mEq/L (3.5-5.1) H 02/21/18 15: Chloride 101 mEq/L (98-107) 02/21/18 15: Carbon Dioxide 28.4 mEq/L (21.0-31.0) 02/21/18 15: Anion Gap 14.9 (7.0-16.0) 02/21/18 15: BUN 12 mg/dL (7-25) 02/21/18 15:31 Creatinine 0.7 mg/dL (0.7-1.3) 02/21/18 15:31 Est GFR ( Amer) > 60.0 ml/min (>90) 02/21/18 15:31 Est GFR (Non-Af Amer) > 60.0 ml/min 02/21/18 15:31 BUN/Creatinine Ratio 17.1 02/21/18 15:31 Glucose 134 mg/dL (70-105) H 02/21/18 15:31 Calcium 9.8 mg/dL (8.6-10.3) 02/21/18 15:31 Magnesium 2.3 mg/dL (1.9-2.7) 02/21/18 15:31 Total Bilirubin 0.2 mg/dL (0.3-1.0) L 02/21/18 15:31 AST 12 U/L (13-39) L 02/21/18 15:31 ALT 12 U/L (7-52) 02/21/18 15:31 Alkaline Phosphatase 83 U/L (34-104) 02/21/18 15:31 Troponin I < 0.01 ng/mL (0.01-0.05) L 02/21/18 15:31 B-Natriuretic Peptide 43.8 pg/mL (5.0-100.0) 02/21/18 15:31 Total Protein 7.6 gm/dL (6.0-8.3) 02/21/18 15:31 Albumin 3.9 gm/dL (4.2-5.5) L 02/21/18 15:31 Globulin 3.7 gm/dL 02/21/18 15:31 Albumin/Globulin Ratio 1.1 (1.0-1.8) 02/21/18 15:31 TSH 1.11 uIU/ml (0.34-5.60) 02/21/18 15:31 Valproic Acid 36.2 ug/mL (50.0-100.0) L 02/22/18 10:52 - Physical Exam Vitals and I&O: Vital Signs Temp 98.1 F 02/22/18 15:46 Pulse 100 02/22/18 15:46 Resp 20 02/22/18 15:46 BP 132/63 02/22/18 15:46 Pulse Ox 96 02/22/18 15:46 Active Medications: Current Medications Acetaminophen (Tylenol) 650 mg PO Q4HR PRN PRN Reason: Mild Pain / Temp above 100 Stop: 04/22/18 19:50 Carbidopa/Levodopa (Sinemet 25mg-100 Mg) 2 tab PO TID [facility] Stop: 04/22/18 20:59 Last Admin: 02/22/18 14:54 Dose: 2 tab Docusate Sodium (Colace) 100 mg PO BID [facility] Stop: 04/23/18 08:59 Last Admin: 02/22/18 08:19 Dose: 100 mg Lorazepam (Ativan) 0.5 mg PO Q4HR PRN; Protocol PRN Reason: Anxiety Stop: 03/23/18 21:55 Last Admin: 02/22/18 14:54 Dose: 0.5 mg Magnesium Hydroxide (Milk Of Magnesia) 30 ml PO HS PRN PRN Reason: Constipation Stop: 04/22/18 19:50 Multivitamins/Vitamin C (Theragran) 1 tab PO DAILY [facility] Stop: 04/23/18 08:59 Last Admin: 02/22/18 08:18 Dose: 1 tab Quetiapine Fumarate (Seroquel) 12.5 mg PO HS J[facility] LUIS PRN Reason: Protocol Stop: 04/23/18 20:59 Valproate Sodium (Depakene) 500 mg PO BID [facility] Stop: 04/23/18 08:59 Last Admin: 02/22/18 08:19 Dose: 500 mg Zolpidem Tartrate (Ambien) 5 mg PO HS PRN PRN Reason: Insomnia Stop: 04/22/18 19:50 General: No acute distress HEENT: PERRLA, EOMI Neck: Supple, JVD, Thyromegaly Cardiovascular: Regular rate, Normal S1, Normal S2 Lungs: Clear to auscultation Abdomen: Bowel sounds, Soft - Procedures Procedures: Procedures Procedure Code Date CHANGE FEEDING DEVICE IN UP INTEST TRACT, CURING OVEN TENDER APPROACH [id number] 09/01/17 GROUP PSYCHOTHERAPY 21639 11/29/15 GROUP PSYCHOTHERAPY GZHZZZZ 11/29/15 OTHER GROUP THERAPY 94.44 01/15/13 RECREATIONAL THERAPY 93.81 05/12/12 Assessment/Plan - Assessment Assessment: parkinson's dz dementia DJD - Plan Plan: cont current treatment
[2018-02-23] MEDS: Multivitamin Tab PO SCH (09:32)
--- NOTE | 2018-02-23 18:10 | Progress Notes ---
DATE: 02/23/2018 PSYCHIATRIC PROGRESS NOTE SUBJECTIVE: Staff was spoken to. The patient is interviewed. Mood is noted to be irritable. Affect is constricted, even if the patient was fair. The patient has constantly been saying that he is hungry. The patient's coping skills are noted to be very poor. The patient is currently on valproic acid 500 mg twice a day and has been able to tolerate the medication, but has been getting easily irritable and angry. The patient has been placed on 12.5 mg of the Seroquel, which is going to be gradually increased to 25 mg and patient is going to be closely monitored and provided with supportive psychotherapy. The patient is not ready to be discharged to a lower level of care yet. [facility]# [id number]
--- NOTE | 2018-02-23 18:34 | General Progress Note ---
Subjective - Review of Systems Service Date: 02/23/18 Subjective: resting comfortably in gerichair no distress Objective - Results Result Diagrams: 02/21/18 15:31 02/21/18 15: Recent Labs: Laboratory Last Values WBC 7.9 Th/cmm (4.8-10.8) 02/21/18 15: RBC 4.66 Mil/cmm (3.80-5.80) 02/21/18 15: Hgb 14.9 gm/dL (12-16) 02/21/18 15: Hct 44.9 % (41.0-60) 02/21/18 15: MCV 96.3 fl (80-99) 02/21/18 15: MCH 32.0 pg (27.0-31.0) H 02/21/18 15: MCHC Differential 33.3 pg (28.0-36.0) 02/21/18 15: RDW 13.2 % (11.5-20.0) 02/21/18 15: Plt Count 320 Th/cmm (150-400) 02/21/18 15: MPV 7.0 fl 02/21/18 15: Neutrophils % 63.5 % (40.0-80.0) 02/21/18: Lymphocytes % 29.1 % (20.0-50.0) 02/21/18 15: Monocytes % 4.4 % (2.0-10.0) 02/21/18 15: Eosinophils % 2.3 % (0.0-5.0) 02/21/18: Basophils % 0.7 % (0.0-2.0) 02/21/18 15: Sodium 139 mEq/L (136-145) 02/21/18 15: Potassium 5.3 mEq/L (3.5-5.1) H 02/21/18 15: Chloride 101 mEq/L (98-107) 02/21/18 15: Carbon Dioxide 28.4 mEq/L (21.0-31.0) 02/21/18 15: Anion Gap 14.9 (7.0-16.0) 02/21/18 15: BUN 12 mg/dL (7-25) 02/21/18 15:31 Creatinine 0.7 mg/dL (0.7-1.3) 02/21/18 15:31 Est GFR ( Amer) > 60.0 ml/min (>90) 02/21/18 15:31 Est GFR (Non-Af Amer) > 60.0 ml/min 02/21/18 15:31 BUN/Creatinine Ratio 17.1 02/21/18 15:31 Glucose 134 mg/dL (70-105) H 02/21/18 15:31 Calcium 9.8 mg/dL (8.6-10.3) 02/21/18 15:31 Magnesium 2.3 mg/dL (1.9-2.7) 02/21/18 15:31 Total Bilirubin 0.2 mg/dL (0.3-1.0) L 02/21/18 15:31 AST 12 U/L (13-39) L 02/21/18 15:31 ALT 12 U/L (7-52) 02/21/18 15:31 Alkaline Phosphatase 83 U/L (34-104) 02/21/18 15:31 Troponin I < 0.01 ng/mL (0.01-0.05) L 02/21/18 15:31 B-Natriuretic Peptide 43.8 pg/mL (5.0-100.0) 02/21/18 15:31 Total Protein 7.6 gm/dL (6.0-8.3) 02/21/18 15:31 Albumin 3.9 gm/dL (4.2-5.5) L 02/21/18 15:31 Globulin 3.7 gm/dL 02/21/18 15:31 Albumin/Globulin Ratio 1.1 (1.0-1.8) 02/21/18 15:31 TSH 1.11 uIU/ml (0.34-5.60) 02/21/18 15:31 Valproic Acid 36.2 ug/mL (50.0-100.0) L 02/22/18 10:52 - Physical Exam Vitals and I&O: Vital Signs Temp 99.2 F 02/23/18 15:46 Pulse 76 02/23/18 15:46 Resp 20 02/23/18 15:46 BP 114/67 02/23/18 15:46 Pulse Ox 96 02/23/18 15:46 Active Medications: Current Medications Acetaminophen (Tylenol) 650 mg PO Q4HR PRN PRN Reason: Mild Pain / Temp above 100 Stop: 04/22/18 19:50 Last Admin: 02/23/18 09:57 Dose: 650 mg Carbidopa/Levodopa (Sinemet 25mg-100 Mg) 2 tab PO TID [facility] Stop: 04/22/18 20:59 Last Admin: 02/23/18 16:59 Dose: Not Given Docusate Sodium (Colace) 100 mg PO BID [facility] Stop: 04/23/18 08:59 Last Admin: 02/23/18 16:59 Dose: Not Given Lorazepam (Ativan) 0.5 mg PO Q4HR PRN; Protocol PRN Reason: Anxiety Stop: 03/23/18 21:55 Last Admin: 02/23/18 09:57 Dose: 0.5 mg Magnesium Hydroxide (Milk Of Magnesia) 30 ml PO HS PRN PRN Reason: Constipation Stop: 04/22/18 19:50 Multivitamins/Vitamin C (Theragran) 1 tab PO DAILY [facility] Stop: 04/23/18 08:59 Last Admin: 02/23/18 09:32 Dose: 1 tab Quetiapine Fumarate (Seroquel) 25 mg PO HS [facility] PRN Reason: Protocol Stop: 04/24/18 13:32 Valproate Sodium (Depakene) 500 mg PO BID [facility] Stop: 04/23/18 08:59 Last Admin: 02/23/18 16:59 Dose: 500 mg Zolpidem Tartrate (Ambien) 5 mg PO HS PRN PRN Reason: Insomnia Stop: 04/22/18 19:50 General: No acute distress HEENT: PERRLA, EOMI Neck: Supple, JVD, Thyromegaly Cardiovascular: Regular rate, Normal S1, Normal S2 Lungs: Clear to auscultation Abdomen: Bowel sounds, Soft - Procedures Procedures: Procedures Procedure Code Date CHANGE FEEDING DEVICE IN UP INTEST TRACT, TECHNICAL OPERATIONS SPECIALIST APPROACH [id number] 09/01/17 GROUP PSYCHOTHERAPY 54219 11/29/15 GROUP PSYCHOTHERAPY GZHZZZZ 11/29/15 OTHER GROUP THERAPY 94.44 01/15/13 RECREATIONAL THERAPY 93.81 05/12/12 Assessment/Plan - Assessment Assessment: parkinson's dz dementia DJD - Plan Plan: cont current treatment
[2018-02-24] MEDS: Multivitamin Tab PO SCH (09:49)
--- NOTE | 2018-02-24 20:58 | Consultation ---
DATE OF CONSULTATION: 02/24/2018 REFERRING PHYSICIAN: Jeff Stephens M.D. TYPE OF CONSULTATION: Psychology. HISTORY OF PRESENT ILLNESS: The patient is a 72-year-old male. The patient is a resident of [facility]. The patient is known to this consumer loan underwriter from a previous hospitalization. The following is my review of the medical record and by the patient's self report. The patient is admitted due to increased agitation and disruptive behavior. According to record review, the patient was reported by the staff at his facility to be sexually preoccupied with female staff. The patient had been making gestures as well as comments to the female staff. Upon interview, the patient denied these behaviors and stated that he did not know why he had to be here. The patient presents as irritable and agitated. The patient denied any suicidal ideation, plan or intention. PAST MEDICAL HISTORY: Please see history and physical by Dr. Mandujano. The patient has a history of Parkinson's disease and degenerative joint disease. PAST PSYCHIATRIC HISTORY: Not available at the time of this clinical interview. SUBSTANCE ABUSE HISTORY: The patient denied any history. PSYCHOSOCIAL HISTORY: The patient did not answer questions about occupational or educational history or religion affiliation. The patient denied any history of physical or sexual abuse or any current legal problems. MENTAL STATUS EXAMINATION: The patient appears to be his stated age. The patient's attitude is superficially cooperative. Eye contact is poor. Speech is pressured and hyperverbal. The patient denied any auditory or visual hallucinations. The patient denies any suicidal ideation, plan or intention. Thought process shows to be somewhat confused and disorganized. The patient's behavior on the unit has been testing the limits of the staff. Impulse control is inadequate. Concentration is poor. There seems to be some paranoid ideation. This needs further evaluation. Sensorium is alert and oriented to person and place. The patient did not participate in the memory assessment. The patient did not participate in the interpretation of proverbs. Insight is poor. Judgment is poor. DIAGNOSTIC IMPRESSION: AXIS I: Psychotic disorder, not otherwise specified. AXIS II: Deferred. AXIS III, Parkinson's disease. PLAN: The patient has been seen by Dr. Stephens for psychiatric evaluation and for management of the patient's psychotropic medications. According to record, the patient is continued on Depakote and low dose of Seroquel will be added. The patient continues to display an irritable mood. We will provide anger management as well as de-escalation. We will provide limit setting and motivational enhancement for the patient to become compliant and stay compliant with all aspects of his care and treatment plan. We will provide coping strategies for phase of life issues. We will provide reality testing, reality orientation, and reality integration. We will continue to provide the patient an opportunity to verbalize his concerns versus acting out. The patient will be able to demonstrate emotional and self-regulation including no sexual gestures or remarks prior to his discharge. Thank you, Dr. Stephens for this consult and the opportunity to participate with you in this patient's care. JOB# [id number] JOSE
--- NOTE | 2018-02-24 22:29 | Internal Medicine Prog Note ---
Internal Medicine Subjective - Subjective Service Date: 02/24/18 Patient is:: awake, verbal, in bed, confused Per staff patient has:: no adverse event Internal Medicine Objective - Results Result Diagrams: 02/21/18 15:31 02/21/18 15: Recent Labs: Laboratory Last Values WBC 7.9 Th/cmm (4.8-10.8) 02/21/18 15: RBC 4.66 Mil/cmm (3.80-5.80) 02/21/18 15: Hgb 14.9 gm/dL (12-16) 02/21/18 15:31 Hct 44.9 % (41.0-60) 02/21/18 15: MCV 96.3 fl (80-99) 02/21/18 15: MCH 32.0 pg (27.0-31.0) H 02/21/18 15: MCHC Differential 33.3 pg (28.0-36.0) 02/21/18 15: RDW 13.2 % (11.5-20.0) 02/21/18 15: Plt Count 320 Th/cmm (150-400) 02/21/18 15: MPV 7.0 fl 02/21/18 15:31 Neutrophils % 63.5 % (40.0-80.0) 02/21/18 15: Lymphocytes % 29.1 % (20.0-50.0) 02/21/18 15: Monocytes % 4.4 % (2.0-10.0) 02/21/18 15: Eosinophils % 2.3 % (0.0-5.0) 02/21/18 15: Basophils % 0.7 % (0.0-2.0) 02/21/18 15:31 Sodium 139 mEq/L (136-145) 02/21/18 15:31 Potassium 5.3 mEq/L (3.5-5.1) H 02/21/18 15:31 Chloride 101 mEq/L (98-107) 02/21/18 15:31 Carbon Dioxide 28.4 mEq/L (21.0-31.0) 02/21/18 15:31 Anion Gap 14.9 (7.0-16.0) 02/21/18 15:31 BUN 12 mg/dL (7-25) 02/21/18 15:31 Creatinine 0.7 mg/dL (0.7-1.3) 02/21/18 15:31 Est GFR ( Amer) > 60.0 ml/min (>90) 02/21/18 15:31 Est GFR (Non-Af Amer) > 60.0 ml/min 02/21/18 15:31 BUN/Creatinine Ratio 17.1 02/21/18 15:31 Glucose 134 mg/dL (70-105) H 02/21/18 15:31 Calcium 9.8 mg/dL (8.6-10.3) 02/21/18 15:31 Magnesium 2.3 mg/dL (1.9-2.7) 02/21/18 15:31 Total Bilirubin 0.2 mg/dL (0.3-1.0) L 02/21/18 15:31 AST 12 U/L (13-39) L 02/21/18 15:31 ALT 12 U/L (7-52) 02/21/18 15:31 Alkaline Phosphatase 83 U/L (34-104) 02/21/18 15:31 Troponin I < 0.01 ng/mL (0.01-0.05) L 02/21/18 15:31 B-Natriuretic Peptide 43.8 pg/mL (5.0-100.0) 02/21/18 15:31 Total Protein 7.6 gm/dL (6.0-8.3) 02/21/18 15:31 Albumin 3.9 gm/dL (4.2-5.5) L 02/21/18 15:31 Globulin 3.7 gm/dL 02/21/18 15:31 Albumin/Globulin Ratio 1.1 (1.0-1.8) 02/21/18 15:31 TSH 1.11 uIU/ml (0.34-5.60) 02/21/18 15:31 Valproic Acid 36.2 ug/mL (50.0-100.0) L 02/22/18 10:52 - Physical Exam Vitals and I&O: Vital Signs Temp 97.8 F 02/24/18 20:00 Pulse 73 02/24/18 20:00 Resp 18 02/24/18 20:00 BP 117/75 02/24/18 20:00 Pulse Ox 97 02/24/18 20:00 Intake & Output 02/24/18 02/24/18 02/25/18 06:59 18:59 06:59 Intake Total 360 Balance 360 Intake: Oral 360 Other: # Voids 3 Active Medications: Current Medications Acetaminophen (Tylenol) 650 mg PO Q4HR PRN PRN Reason: Mild Pain / Temp above 100 Stop: 04/22/18 19:50 Last Admin: 02/23/18 09:57 Dose: 650 mg Carbidopa/Levodopa (Sinemet 25mg-100 Mg) 2 tab PO TID [facility] Stop: 04/22/18 20:59 Last Admin: 02/24/18 20:33 Dose: 2 tab Docusate Sodium (Colace) 100 mg PO BID [facility] Stop: 04/23/18 08:59 Last Admin: 02/24/18 16:31 Dose: 100 mg Lorazepam (Ativan) 0.5 mg PO Q4HR PRN; Protocol PRN Reason: Anxiety Stop: 03/23/18 21:55 Last Admin: 02/23/18 09:57 Dose: 0.5 mg Magnesium Hydroxide (Milk Of Magnesia) 30 ml PO HS PRN PRN Reason: Constipation Stop: 04/22/18 19:50 Multivitamins/Vitamin C (Theragran) 1 tab PO DAILY [facility] Stop: 04/23/18 08:59 Last Admin: 02/24/18 09:49 Dose: 1 tab Quetiapine Fumarate (Seroquel) 25 mg PO HS [facility]OS[facility] LUIS PRN Reason: Protocol Stop: 04/24/18 13:32 Last Admin: 02/24/18 20:33 Dose: 25 mg Valproate Sodium (Depakene) 500 mg PO BID [facility] Stop: 04/23/18 08:59 Last Admin: 02/24/18 16:31 Dose: 500 mg Zolpidem Tartrate (Ambien) 5 mg PO HS PRN PRN Reason: Insomnia Stop: 04/22/18 19:50 General: demented HEENT: anicteric sclerae, throat clear Neck: Supple, No JVD, No thyromegaly, +2 carotid pulse wo bruit, No LAD Cardiovascular: RRR, Normal S1, Normal S2, without murmur Abdomen: soft, non-tender, non-distended Neurological: no change - Procedures Procedures: Procedures Procedure Code Date CHANGE FEEDING DEVICE IN UP INTEST TRACT, FINISHING ROOM SUPERVISOR APPROACH [id number] 09/01/17 GROUP PSYCHOTHERAPY 01638 11/29/15 GROUP PSYCHOTHERAPY GZHZZZZ 11/29/15 OTHER GROUP THERAPY 94.44 01/15/13 RECREATIONAL THERAPY 93.81 05/12/12 Internal Medicine Assmt/Plan - Assessment Assessment: 1.parkinsons disease. 2.djd. 3.dementia. 4.psychosis. - Plan Plan: continue on current medication and diet.
[2018-02-25] MEDS: Multivitamin Tab PO SCH (09:57)
--- NOTE | 2018-02-25 10:44 | Progress Notes ---
DATE: 02/24/2018 SUBJECTIVE: Staff was spoken to. The patient is interviewed. Mood is noted to be irritable. Affect is constricted. Insight and judgment at this time are noted to be still impaired. Impulse control is noted to be limited. The patient needs to be redirected. Coping skills are noted to be very poor. The patient has been able to tolerate the medications at this time and patient constantly asks for food. The patient is currently on carbidopa/levodopa and is also on 25 mg of the Seroquel and 500 mg twice a day of the Depakote. ASSESSMENT: The patient is still impulsive and paranoid. PLAN: To continue the patient with the supportive therapy and followup. [facility]# [id number]
--- NOTE | 2018-02-25 11:39 | Internal Medicine Prog Note ---
Internal Medicine Subjective - Subjective Service Date: 02/25/18 Patient seen and examined:: without staff Patient is:: awake, verbal, in bed, confused Per staff patient has:: no adverse event Internal Medicine Objective - Results Result Diagrams: 02/21/18 15:31 02/21/18 15:31 Recent Labs: Laboratory Last Values WBC 7.9 Th/cmm (4.8-10.8) 02/21/18 15:31 RBC 4.66 Mil/cmm (3.80-5.80) 02/21/18 15:31 Hgb 14.9 gm/dL (12-16) 02/21/18 15:31 Hct 44.9 % (41.0-60) 02/21/18 15:31 MCV 96.3 fl (80-99) 02/21/18 15:31 MCH 32.0 pg (27.0-31.0) H 02/21/18 15: MCHC Differential 33.3 pg (28.0-36.0) 02/21/18 15: RDW 13.2 % (11.5-20.0) 02/21/18 15:31 Plt Count 320 Th/cmm (150-400) 02/21/18 15:31 MPV 7.0 fl 02/21/18 15:31 Neutrophils % 63.5 % (40.0-80.0) 02/21/18 15: Lymphocytes % 29.1 % (20.0-50.0) 02/21/18 15: Monocytes % 4.4 % (2.0-10.0) 02/21/18 15: Eosinophils % 2.3 % (0.0-5.0) 02/21/18 15:31 Basophils % 0.7 % (0.0-2.0) 02/21/18 15:31 Sodium 139 mEq/L (136-145) 02/21/18 15:31 Potassium 5.3 mEq/L (3.5-5.1) H 02/21/18 15:31 Chloride 101 mEq/L (98-107) 02/21/18 15:31 Carbon Dioxide 28.4 mEq/L (21.0-31.0) 02/21/18 15:31 Anion Gap 14.9 (7.0-16.0) 02/21/18 15:31 BUN 12 mg/dL (7-25) 02/21/18 15:31 Creatinine 0.7 mg/dL (0.7-1.3) 02/21/18 15:31 Est GFR ( Amer) > 60.0 ml/min (>90) 02/21/18 15:31 Est GFR (Non-Af Amer) > 60.0 ml/min 02/21/18 15:31 BUN/Creatinine Ratio 17.1 02/21/18 15:31 Glucose 134 mg/dL (70-105) H 02/21/18 15:31 Calcium 9.8 mg/dL (8.6-10.3) 02/21/18 15:31 Magnesium 2.3 mg/dL (1.9-2.7) 02/21/18 15: Total Bilirubin 0.2 mg/dL (0.3-1.0) L 02/21/18 15:31 AST 12 U/L (13-39) L 02/21/18 15: ALT 12 U/L (7-52) 02/21/18 15:31 Alkaline Phosphatase 83 U/L (34-104) 02/21/18 15:31 Troponin I < 0.01 ng/mL (0.01-0.05) L 02/21/18 15: B-Natriuretic Peptide 43.8 pg/mL (5.0-100.0) 02/21/18 15:31 Total Protein 7.6 gm/dL (6.0-8.3) 02/21/18 15: Albumin 3.9 gm/dL (4.2-5.5) L 02/21/18 15: Globulin 3.7 gm/dL 02/21/18 15: Albumin/Globulin Ratio 1.1 (1.0-1.8) 02/21/18 15: TSH 1.11 uIU/ml (0.34-5.60) 02/21/18 15: Valproic Acid 36.2 ug/mL (50.0-100.0) L 02/22/18 10:52 RPR NONREACTIVE (NONREACTIVE) 02/21/18 15: - Physical Exam Vitals and I&O: Vital Signs Temp 98.1 F 02/25/18 06:12 Pulse 69 02/25/18 06:12 Resp 18 02/25/18 06:12 BP 110/72 02/25/18 06:12 Pulse Ox 98 02/25/18 06:12 Intake & Output 02/24/18 02/25/18 02/25/18 18:59 06:59 18:59 Intake Total 360 Balance 360 Intake: Oral 360 Other: # Voids 3 Active Medications: Current Medications Acetaminophen (Tylenol) 650 mg PO Q4HR PRN PRN Reason: Mild Pain / Temp above 100 Stop: 04/22/18 19:50 Last Admin: 02/23/18 09:57 Dose: 650 mg Carbidopa/Levodopa (Sinemet 25mg-100 Mg) 2 tab PO TID [facility] Stop: 04/22/18 20:59 Last Admin: 02/25/18 09:57 Dose: 2 tab Docusate Sodium (Colace) 100 mg PO BID [facility] Stop: 04/23/18 08:59 Last Admin: 02/25/18 09:57 Dose: 100 mg Lorazepam (Ativan) 0.5 mg PO Q4HR PRN; Protocol PRN Reason: Anxiety Stop: 03/23/18 21:55 Last Admin: 02/23/18 09:57 Dose: 0.5 mg Magnesium Hydroxide (Milk Of Magnesia) 30 ml PO HS PRN PRN Reason: Constipation Stop: 04/22/18 19:50 Multivitamins/Vitamin C (Theragran) 1 tab PO DAILY JOSÉ LUIS Stop: 04/23/18 08:59 Last Admin: 02/25/18 09:57 Dose: 1 tab Quetiapine Fumarate (Seroquel) 25 mg PO HS JOSÉ LUIS PRN Reason: Protocol Stop: 04/24/18 13:32 Last Admin: 02/24/18 20:33 Dose: 25 mg Valproate Sodium (Depakene) 500 mg PO BID JOSÉ LUIS Stop: 04/23/18 08:59 Last Admin: 02/25/18 09:56 Dose: 500 mg Zolpidem Tartrate (Ambien) 5 mg PO HS PRN PRN Reason: Insomnia Stop: 04/22/18 19:50 General: demented HEENT: anicteric sclerae, throat clear Neck: Supple, No JVD, No thyromegaly, +2 carotid pulse wo bruit, No LAD Cardiovascular: RRR, Normal S1, Normal S2, without murmur Abdomen: soft, non-tender, non-distended Neurological: no change - Procedures Procedures: Procedures Procedure Code Date CHANGE FEEDING DEVICE IN UP INTEST TRACT, BOWLING BALL WEIGHER AND PACKER APPROACH [id number] 09/01/17 GROUP PSYCHOTHERAPY 05774 11/29/15 GROUP PSYCHOTHERAPY GZHZZZZ 11/29/15 OTHER GROUP THERAPY 94.44 01/15/13 RECREATIONAL THERAPY 93.81 05/12/12 Internal Medicine Assmt/Plan - Assessment Assessment: 1.parkinsons disease. 2.djd. 3.dementia. 4.psychosis. - Plan Plan: continue on current medication and diet.
--- NOTE | 2018-02-25 14:31 | Progress Notes ---
DATE: 02/25/2018 SUBJECTIVE: Staff was spoken to. The patient is interviewed. Mood is noted to be irritable. Affect is constricted. The patient is getting easily irritable and angry. Coping skills are noted to be very poor. Sleep and appetite also noted very poor. The patient has been having difficult time to cope with the stress. No side effects to the medications are noted at this time. The patient is currently on valproic acid 500 mg twice a day and Seroquel 25 mg at bedtime. The patient has been able to tolerate the medication. ASSESSMENT: The patient is still paranoid and impulsive. PLAN: To continue the patient with the supportive therapy, encouraged the patient to verbalize the concerns rather than to act out. [facility]# [id number]
[2018-02-26] MEDS: Multivitamin Tab PO SCH (08:06)
--- NOTE | 2018-02-26 23:38 | Internal Medicine Prog Note ---
Internal Medicine Subjective - Subjective Service Date: 02/26/18 Patient seen and examined:: without staff Patient is:: awake, verbal, in bed, confused Per staff patient has:: no adverse event Internal Medicine Objective - Results Result Diagrams: 02/21/18 15:31 02/21/18 15:31 Recent Labs: Laboratory Last Values WBC 7.9 Th/cmm (4.8-10.8) 02/21/18 15:31 RBC 4.66 Mil/cmm (3.80-5.80) 02/21/18 15:31 Hgb 14.9 gm/dL (12-16) 02/21/18 15:31 Hct 44.9 % (41.0-60) 02/21/18 15:31 MCV 96.3 fl (80-99) 02/21/18 15:31 MCH 32.0 pg (27.0-31.0) H 02/21/18 15:31 MCHC Differential 33.3 pg (28.0-36.0) 02/21/18 15:31 RDW 13.2 % (11.5-20.0) 02/21/18 15:31 Plt Count 320 Th/cmm (150-400) 02/21/18 15:31 MPV 7.0 fl 02/21/18 15:31 Neutrophils % 63.5 % (40.0-80.0) 02/21/18 15:31 Lymphocytes % 29.1 % (20.0-50.0) 02/21/18 15: Monocytes % 4.4 % (2.0-10.0) 02/21/18 15:31 Eosinophils % 2.3 % (0.0-5.0) 02/21/18 15:31 Basophils % 0.7 % (0.0-2.0) 02/21/18 15:31 Sodium 139 mEq/L (136-145) 02/21/18 15:31 Potassium 5.3 mEq/L (3.5-5.1) H 02/21/18 15:31 Chloride 101 mEq/L (98-107) 02/21/18 15:31 Carbon Dioxide 28.4 mEq/L (21.0-31.0) 02/21/18 15:31 Anion Gap 14.9 (7.0-16.0) 02/21/18 15:31 BUN 12 mg/dL (7-25) 02/21/18 15:31 Creatinine 0.7 mg/dL (0.7-1.3) 02/21/18 15:31 Est GFR ( Amer) > 60.0 ml/min (>90) 02/21/18 15:31 Est GFR (Non-Af Amer) > 60.0 ml/min 02/21/18 15:31 BUN/Creatinine Ratio 17.1 02/21/18 15:31 Glucose 134 mg/dL (70-105) H 02/21/18 15:31 Calcium 9.8 mg/dL (8.6-10.3) 02/21/18 15:31 Magnesium 2.3 mg/dL (1.9-2.7) 02/21/18 15:31 Total Bilirubin 0.2 mg/dL (0.3-1.0) L 02/21/18 15:31 AST 12 U/L (13-39) L 02/21/18 15:31 ALT 12 U/L (7-52) 02/21/18 15:31 Alkaline Phosphatase 83 U/L (34-104) 02/21/18 15:31 Troponin I < 0.01 ng/mL (0.01-0.05) L 02/21/18 15:31 B-Natriuretic Peptide 43.8 pg/mL (5.0-100.0) 02/21/18 15:31 Total Protein 7.6 gm/dL (6.0-8.3) 02/21/18 15:31 Albumin 3.9 gm/dL (4.2-5.5) L 02/21/18 15:31 Globulin 3.7 gm/dL 02/21/18 15:31 Albumin/Globulin Ratio 1.1 (1.0-1.8) 02/21/18 15:31 TSH 1.11 uIU/ml (0.34-5.60) 02/21/18 15:31 Valproic Acid 36.2 ug/mL (50.0-100.0) L 02/22/18 10:52 RPR NONREACTIVE (NONREACTIVE) 02/21/18 15:31 - Physical Exam Vitals and I&O: Vital Signs Temp 98.3 F 02/26/18 15:52 Pulse 87 02/26/18 15:52 Resp 20 02/26/18 15:52 BP 93/52 02/26/18 15:52 Pulse Ox 96 02/26/18 15:52 Intake & Output 02/26/18 02/26/18 02/27/18 06:59 18:59 06:59 Intake Total 480 Balance 480 Intake: Oral 480 Other: # Voids 2 Active Medications: Current Medications Acetaminophen (Tylenol) 650 mg PO Q4HR PRN PRN Reason: Mild Pain / Temp above 100 Stop: 04/22/18 19:50 Last Admin: 02/23/18 09:57 Dose: 650 mg Carbidopa/Levodopa (Sinemet 25mg-100 Mg) 2 tab PO TID J[facility] Stop: 04/22/18 20:59 Last Admin: 02/26/18 20:50 Dose: 2 tab Docusate Sodium (Colace) 100 mg PO BID [facility] Stop: 04/23/18 08:59 Last Admin: 02/26/18 16:25 Dose: 100 mg Lorazepam (Ativan) 0.5 mg PO Q4HR PRN; Protocol PRN Reason: Anxiety Stop: 03/23/18 21:55 Last Admin: 02/25/18 21:12 Dose: 0.5 mg Magnesium Hydroxide (Milk Of Magnesia) 30 ml PO HS PRN PRN Reason: Constipation Stop: 04/22/18 19:50 Multivitamins/Vitamin C (Theragran) 1 tab PO DAILY JOSÉ LUIS Stop: 04/23/18 08:59 Last Admin: 02/26/18 08:06 Dose: 1 tab Quetiapine Fumarate (Seroquel) 25 mg PO HS JOSÉ LUIS PRN Reason: Protocol Stop: 04/24/18 13:32 Last Admin: 02/26/18 20:50 Dose: 25 mg Valproate Sodium (Depakene) 500 mg PO BID JOSÉ LUIS Stop: 04/23/18 08:59 Last Admin: 02/26/18 16:25 Dose: 500 mg Zolpidem Tartrate (Ambien) 5 mg PO HS PRN PRN Reason: Insomnia Stop: 04/22/18 19:50 Last Admin: 02/26/18 20:50 Dose: 5 mg General: demented HEENT: anicteric sclerae, throat clear Neck: Supple, No JVD, No thyromegaly, +2 carotid pulse wo bruit, No LAD Cardiovascular: RRR, Normal S1, Normal S2, without murmur Abdomen: soft, non-tender, non-distended Neurological: no change - Procedures Procedures: Procedures Procedure Code Date CHANGE FEEDING DEVICE IN UP INTEST TRACT, SPOUT POSITIONER APPROACH [id number] 09/01/17 GROUP PSYCHOTHERAPY 70550 11/29/15 GROUP PSYCHOTHERAPY GZHZZZZ 11/29/15 OTHER GROUP THERAPY 94.44 01/15/13 RECREATIONAL THERAPY 93.81 05/12/12 Internal Medicine Assmt/Plan - Assessment Assessment: 1.parkinsons disease. 2.djd. 3.dementia. 4.psychosis. - Plan Plan: continue on current medication and diet. Nutritional Asmnt/Malnutr-PDOC - Dietary Evaluation Malnutrition Findings (Please click <Entered> for more info): Nutritional Asmnt/Malnutrition Start: 02/26/18 15: 02 Text: Status: Complete Freq: Document 02/26/18 15:04 JOZEF (Rec: 02/26/18 15:10 [email or web address]) Nutritional Asmnt/Malnutrition Patient General Information Nutritional Screening Moderate Risk Diagnosis psychosis NOS Pertinent Medical Hx/Surgical Hx dementia, psychosis, parkinson 's disease, DJD Subjective Information pt seen sitting in mary-chair in hallway, very confused, not able to communicate. Per nurse, pt eats well. Current Diet Order/ Nutrition Support pureed Pertinent Medications colace, theragran, serqoquel Pertinent Labs 02/21 K 5.2, glucose 134 Nutritional Hx/Data Height 1.75 m Height (Calculated Centimeters) 175.3 Current Weight (lbs) 60.328 kg Weight (Calculated Kilograms) 60.3 Weight (Calculated Grams) 70348.8 [place] Body Weight 160 % [place] Body Weight 83 Body Mass Index (BMI) 19.6 Weight Status Approriate GI Symptoms GI Symptoms None Last BM 02/25 Difficult in: None Skin Integrity/Comment: ald gtube stoma closed, skin intact Current %PO Good (75-100%) Estimated Nutritional Goals BEE in Kcals: Using Current wt Calories/Kcals/Kg 25-30 Kcals Calculated 7747-5509 Protein: Using Current wt Protein g/k-1.1 Protein Calculated 60-66 Fluid: ml 1500-1800ml (1ml/kcal) Nutritional Problem No current Nutrition Prob Problem N/A Malnutrition Alert Is there a minimum of two criteria No selected? Query Text:Check all the applicable criteria. A minimum of two criteria are recommended for diagnosis of either severe or non-severe malnutrition. Malnutrition Related to Morbid Obesity Malnutrition related to morbid obesity No Intervention/Recommendation Comments 1. Continue with pureed diet as ordered. Monitor blood sugar. 2. Monitor PO intake, wt, labs and skin integrity 3. F/U as low risk in 7 days, 03/05 Expected Outcomes/Goals Expected Outcomes/Goals 1. PO intake continue to meet at least 75% of nutritional needs. 2. Wt stability, skin to remain intact, labs to approach WNL.
[2018-02-27] MEDS: Multivitamin Tab PO SCH (08:52)
--- NOTE | 2018-02-27 09:24 | Progress Notes ---
DATE: 02/26/2018 SUBJECTIVE: Staff was spoken to. The patient is interviewed. Mood is noted to be irritable. Affect is constricted. Insight and judgment are noted to be still impaired. The patient is grossly confused and needs to be redirected constantly. Coping skills are noted to be very poor. The patient has no insight into his illness. The patient is being closely monitored at this time for his impulsive behavior and plan to continue the patient with the Seroquel that is being given 25 mg and valproic acid is being given 500 mg twice a day. ASSESSMENT: The patient is still impulsive and confused. PLAN: To continue the patient with the supportive therapy and followup. JOB# [id number]
--- NOTE | 2018-02-27 23:55 | Internal Medicine Prog Note ---
Internal Medicine Subjective - Subjective Service Date: 02/27/18 Patient seen and examined:: without staff Patient is:: awake, verbal, in bed, confused Per staff patient has:: no adverse event Internal Medicine Objective - Results Result Diagrams: 02/21/18 15:31 02/21/18 15:31 Recent Labs: Laboratory Last Values WBC 7.9 Th/cmm (4.8-10.8) 02/21/18 15:31 RBC 4.66 Mil/cmm (3.80-5.80) 02/21/18 15:31 Hgb 14.9 gm/dL (12-16) 02/21/18 15:31 Hct 44.9 % (41.0-60) 02/21/18 15:31 MCV 96.3 fl (80-99) 02/21/18 15:31 MCH 32.0 pg (27.0-31.0) H 02/21/18 15:31 MCHC Differential 33.3 pg (28.0-36.0) 02/21/18 15:31 RDW 13.2 % (11.5-20.0) 02/21/18 15:31 Plt Count 320 Th/cmm (150-400) 02/21/18 15:31 MPV 7.0 fl 02/21/18 15:31 Neutrophils % 63.5 % (40.0-80.0) 02/21/18 15:31 Lymphocytes % 29.1 % (20.0-50.0) 02/21/18 15:31 Monocytes % 4.4 % (2.0-10.0) 02/21/18 15:31 Eosinophils % 2.3 % (0.0-5.0) 02/21/18 15:31 Basophils % 0.7 % (0.0-2.0) 02/21/18 15:31 Sodium 139 mEq/L (136-145) 02/21/18 15:31 Potassium 5.3 mEq/L (3.5-5.1) H 02/21/18 15:31 Chloride 101 mEq/L (98-107) 02/21/18 15:31 Carbon Dioxide 28.4 mEq/L (21.0-31.0) 02/21/18 15:31 Anion Gap 14.9 (7.0-16.0) 02/21/18 15:31 BUN 12 mg/dL (7-25) 02/21/18 15:31 Creatinine 0.7 mg/dL (0.7-1.3) 02/21/18 15:31 Est GFR ( Amer) > 60.0 ml/min (>90) 02/21/18 15:31 Est GFR (Non-Af Amer) > 60.0 ml/min 02/21/18 15:31 BUN/Creatinine Ratio 17.1 02/21/18 15:31 Glucose 134 mg/dL (70-105) H 02/21/18 15:31 Calcium 9.8 mg/dL (8.6-10.3) 02/21/18 15:31 Magnesium 2.3 mg/dL (1.9-2.7) 02/21/18 15:31 Total Bilirubin 0.2 mg/dL (0.3-1.0) L 02/21/18 15:31 AST 12 U/L (13-39) L 02/21/18 15:31 ALT 12 U/L (7-52) 02/21/18 15:31 Alkaline Phosphatase 83 U/L (34-104) 02/21/18 15:31 Troponin I < 0.01 ng/mL (0.01-0.05) L 02/21/18 15:31 B-Natriuretic Peptide 43.8 pg/mL (5.0-100.0) 02/21/18 15:31 Total Protein 7.6 gm/dL (6.0-8.3) 02/21/18 15:31 Albumin 3.9 gm/dL (4.2-5.5) L 02/21/18 15:31 Globulin 3.7 gm/dL 02/21/18 15:31 Albumin/Globulin Ratio 1.1 (1.0-1.8) 02/21/18 15: TSH 1.11 uIU/ml (0.34-5.60) 02/21/18 15: Valproic Acid 36.2 ug/mL (50.0-100.0) L 02/22/18 10:52 RPR NONREACTIVE (NONREACTIVE) 02/21/18 15:31 - Physical Exam Vitals and I&O: Vital Signs Temp 98.1 F 02/27/18 20:00 Pulse 68 02/27/18 20:00 Resp 19 02/27/18 20:00 BP 112/76 02/27/18 20:00 Pulse Ox 96 02/27/18 15:34 Active Medications: Current Medications Acetaminophen (Tylenol) 650 mg PO Q4HR PRN PRN Reason: Mild Pain / Temp above 100 Stop: 04/22/18 19:50 Last Admin: 02/23/18 09:57 Dose: 650 mg Carbidopa/Levodopa (Sinemet 25mg-100 Mg) 2 tab PO TID JOSÉ LUIS Stop: 04/22/18 20:59 Last Admin: 02/27/18 20:33 Dose: 2 tab Docusate Sodium (Colace) 100 mg PO BID [facility] Stop: 04/23/18 08:59 Last Admin: 02/27/18 16:20 Dose: Not Given Lorazepam (Ativan) 0.5 mg PO Q4HR PRN; Protocol PRN Reason: Anxiety Stop: 03/23/18 21:55 Last Admin: 02/25/18 21:12 Dose: 0.5 mg Magnesium Hydroxide (Milk Of Magnesia) 30 ml PO HS PRN PRN Reason: Constipation Stop: 04/22/18 19:50 Multivitamins/Vitamin C (Theragran) 1 tab PO DAILY JOSÉ LUIS Stop: 04/23/18 08:59 Last Admin: 02/27/18 08:52 Dose: 1 tab Quetiapine Fumarate (Seroquel) 25 mg PO HS JOSÉ LUIS PRN Reason: Protocol Stop: 04/24/18 13:32 Last Admin: 02/27/18 20:33 Dose: 25 mg Valproate Sodium (Depakene) 500 mg PO BID [facility] Stop: 04/23/18 08:59 Last Admin: 02/27/18 16:21 Dose: Not Given Zolpidem Tartrate (Ambien) 5 mg PO HS PRN PRN Reason: Insomnia Stop: 04/22/18 19:50 Last Admin: 02/26/18 20:50 Dose: 5 mg General: demented HEENT: anicteric sclerae, throat clear Neck: Supple, No JVD, No thyromegaly, +2 carotid pulse wo bruit, No LAD Cardiovascular: RRR, Normal S1, Normal S2, without murmur Abdomen: soft, non-tender, non-distended Neurological: no change - Procedures Procedures: Procedures Procedure Code Date CHANGE FEEDING DEVICE IN UP INTEST TRACT, MANAGER TECHNICAL SERVICES APPROACH [id number] 09/01/17 GROUP PSYCHOTHERAPY 85605 11/29/15 GROUP PSYCHOTHERAPY GZHZZZZ 11/29/15 OTHER GROUP THERAPY 94.44 01/15/13 RECREATIONAL THERAPY 93.81 05/12/12 Internal Medicine Assmt/Plan - Assessment Assessment: 1.parkinsons disease. 2.djd. 3.dementia. 4.psychosis. - Plan Plan: continue on current medication and diet. Nutritional Asmnt/Malnutr-PDOC - Dietary Evaluation Malnutrition Findings (Please click <Entered> for more info): Nutritional Asmnt/Malnutrition Start: 02/26/18 15: 02 Text: Status: Complete Freq: Document 02/26/18 15:04 JOZEF (Rec: 02/26/18 15:10 [email or web address] [email or web address]) Nutritional Asmnt/Malnutrition Patient General Information Nutritional Screening Moderate Risk Diagnosis psychosis NOS Pertinent Medical Hx/Surgical Hx dementia, psychosis, parkinson 's disease, DJD Subjective Information pt seen sitting in mary-chair in hallway, very confused, not able to communicate. Per nurse, pt eats well. Current Diet Order/ Nutrition Support pureed Pertinent Medications colace, theragran, serqoquel Pertinent Labs 02/21 K 5.2, glucose 134 Nutritional Hx/Data Height 1.75 m Height (Calculated Centimeters) 175.3 Current Weight (lbs) 60.328 kg Weight (Calculated Kilograms) 60.3 Weight (Calculated Grams) 64036.8 [place] Body Weight 160 % [place] Body Weight 83 Body Mass Index (BMI) 19.6 Weight Status Approriate GI Symptoms GI Symptoms None Last BM 02/25 Difficult in: None Skin Integrity/Comment: ald gtube stoma closed, skin intact Current %PO Good (75-100%) Estimated Nutritional Goals BEE in Kcals: Using Current wt Calories/Kcals/Kg 25-30 Kcals Calculated 3749-2081 Protein: Using Current wt Protein g/k-1.1 Protein Calculated 60-66 Fluid: ml 1500-1800ml (1ml/kcal) Nutritional Problem No current Nutrition Prob Problem N/A Malnutrition Alert Is there a minimum of two criteria No selected? Query Text:Check all the applicable criteria. A minimum of two criteria are recommended for diagnosis of either severe or non-severe malnutrition. Malnutrition Related to Morbid Obesity Malnutrition related to morbid obesity No Intervention/Recommendation Comments 1. Continue with pureed diet as ordered. Monitor blood sugar. 2. Monitor PO intake, wt, labs and skin integrity 3. F/U as low risk in 7 days, 03/05 Expected Outcomes/Goals Expected Outcomes/Goals 1. PO intake continue to meet at least 75% of nutritional needs. 2. Wt stability, skin to remain intact, labs to approach WNL.
--- NOTE | 2018-02-28 01:15 | Progress Notes ---
DATE: 02/27/2018 SUBJECTIVE: Staff was spoken to. The patient is interviewed. Mood is noted to be irritable. Affect is constricted. Insight and judgment are noted to be still impaired. Impulse control is poor. The patient compared to the time of admission is less irritable. Screaming and yelling episodes have been going down. The patient is currently on 500 mg of the valproic acid and 25 mg of the Seroquel at bedtime. The patient is able to tolerate the medications. No side effects of the medications are noted. ASSESSMENT: The patient is still irritable and psychotic. PLAN: To continue the patient with the supportive therapy and followup. JOB# [id number]
[2018-02-28] MEDS: Multivitamin Tab PO SCH (10:09)
--- NOTE | 2018-03-01 02:28 | Discharge Summary ---
DATE OF DISCHARGE: 02/28/2018 PSYCHIATRIC DISCHARGE SUMMARY IDENTIFYING DATA: The patient is a 72-year-old male, resident of [facility]. JUSTIFICATION FOR HOSPITALIZATION: The patient is admitted on a voluntary basis in view of his agitation and disruptive behavior. CHIEF COMPLAINT: "I do not know, I had to leave right away." DIAGNOSIS AT THE TIME OF ADMISSION: AXIS I: A. Psychotic disorder, not otherwise specified. B. Dementia and behavioral change, secondary trait. AXIS II: None. AXIS III: As per Dr. Mandujano. HISTORY OF PRESENT ILLNESS: Please refer to 02/22/2018 dictation done by me. Physical examination was done by Dr. Mandujano and is noted to be significant for Parkinson's disease. HOSPITAL COURSE AND RESPONSE TO TREATMENT: The patient has been observed on the inpatient unit, provided with supportive psychotherapy. The patient has been closely monitored. The patient has been placed on carbidopa-levodopa for his Parkinson's and has been given 25 mg of Seroquel at bedtime, 5 mg of valproic acid for his impulse control problems. The patient, with these medications, has been observed and was noted to be doing fairly well and the patient was finally discharged on 02/28/2018 with the recommendation that he is going to be seeking treatment on an outpatient basis. MENTAL STATUS EXAMINATION AT THE TIME OF DISCHARGE: The patient's mood is noted to be less irritable. Affect is appropriate. Denies any active hallucinations. No delusions are noted. Insight and judgment are noted to be fair. Impulse control is noted to be fair. DIAGNOSES AT THE TIME OF DISCHARGE: AXIS I: Psychotic disorder, otherwise specified. AXIS II: None. AXIS III: Parkinson's disease and degenerative joint disease. AFTERCARE PLAN: The patient is discharged to [facility] to be followed up at [facility] by Dr. Gordon. JOB# [id number]
== END 2018-02-28 18:00 | DRG 885 ==
LOC: ER 12:29 → GERO2 16:45
PROVIDERS: ADMIT Psychiatry & Neurology Psychiatry; ATTEND Psychiatry & Neurology Psychiatry
DX: F29 Unspecified psychosis not due to a substance or known physiological condition (principal); G93.41 Metabolic encephalopathy; F02.81 Dementia in other diseases classified elsewhere, unspecified severity, with behavioral disturbance; G20 Parkinson's disease; E11.9 Type 2 diabetes mellitus without complications; Z86.73 Personal history of transient ischemic attack (TIA), and cerebral infarction without residual deficits; K21.9 Gastro-esophageal reflux disease without esophagitis; I25.10 Atherosclerotic heart disease of native coronary artery without angina pectoris; E78.5 Hyperlipidemia, unspecified; M19.90 Unspecified osteoarthritis, unspecified site; R45.87 Impulsiveness; F60.0 Paranoid personality disorder; Z93.1 Gastrostomy status; Z88.2 Allergy status to sulfonamides; Z87.11 Personal history of peptic ulcer disease
CPT/HCPCS: 36415-UA; 71045-TC; 80053-TC; 80164-TC; 83735-TC; 83880-TC; 84443-TC; 84484-TC; 85025-TC; 86592-TC; J1200; J1630; J2060; Z7610

== ENCOUNTER 2018-08-22 17:11 | Inpatient (IN) | payer MEDICARE, MEDICAID ==
[2018-08-22 18:35] LABS: % BASOPHILS 0.7 % (0.0-2.0); % EOSINOPHILS 1.6 % (0.0-5.0); % LYMPHOCYTES 26.6 % (20.0-50.0); % MONOCYTES 7.2 % (2.0-10.0); % NEUTROPHILS 63.9 % (40.0-80.0); BASOPHILE ABSOLUTE 0.1 Th/cumm (0-0.2); EOSINOPHILE ABSOLUTE 0.1 Th/cmm (0.1-0.4); HEMOGLOBIN 13.8 gm/dL (12-16); LYMPHOCYTE ABSOLUTE 1.9 Th/cmm (1.5-3.0); MEAN CELL VOLUME 93.6 fl (80-99); MEAN CORPUSCULAR HEMOGLOBIN 31.4 pg (27.0-31.0); MEAN CORPUSCULAR HGB CONC 33.6 pg (28.0-36.0); MEAN PLATELET VOLUME 7.2 fl; MONOCYTE ABSOLUTE 0.5 Th/cmm (0.3-1.0); NEUTROPHILE ABSOLUTE 4.7 Th/cmm (1.8-8.0); PLATELET COUNT 234 Th/cmm (150-400); RED BLOOD COUNT 4.38 Mil/cmm (3.80-5.80); RED CELL DISTRIBUTION WIDTH 14.2 % (11.5-20.0); WHITE BLOOD COUNT 7.3 Th/cmm (4.8-10.8)
[2018-08-22 18:49] LABS: ALB/GLOB RATIO 1.1 (1.0-1.8); ALBUMIN 3.7 gm/dL (4.2-5.5); ALKALINE PHOSPHATASE 69 U/L (34-104); ANION GAP 12.7 (7.0-16.0); BILIRUBIN,TOTAL 0.3 mg/dL (0.3-1.0); BUN - UREA NITROGEN 16 mg/dL (7-25); CALCIUM SERUM 9.1 mg/dL (8.6-10.3); CARBON DIOXIDE 27.6 mEq/L (21.0-31.0); CHLORIDE 103 mEq/L (98-107); CREATININE - SERUM 0.7 mg/dL (0.7-1.3); GLUCOSE 93 mg/dL (70-105); MAGNESIUM 2.2 mg/dL (1.9-2.7); PHOSPHOROUS 3.4 mg/dL (2.5-5.0); POTASSIUM SERUM 4.3 mEq/L (3.5-5.1); SGOT 12 U/L (13-39); SGPT/ALT 10 U/L (7-52); SODIUM SERUM 139 mEq/L (136-145)
--- NOTE | 2018-08-22 19:44 | ED Physician Chart ---
ED Chief Complaint/HPI - Patient Information Date Seen:: 08/22/18 Time Seen:: 17:42 Chief Complaint:: agitation, hitting staff History of Present Illness:: agitation, hitting staff Allergies:: Allergies Allergy/AdvReac Type Severity Reaction Status Date / Time Sulfa (Sulfonamide Allergy Verified 08/22/18 17:29 Antibiotics) Vitals:: Vital Signs - 8 hr 08/22/18 17:42 Temp 99.1 F HR 95 RR 18 BP 155/86 O2 Sat % 99 Historian:: Medical Records Review:: Nurse's Note Reviewed, Transfer documents Reviewed ED Review of Systems - Review of Systems General/Constitutional: No fever, No chills, No weight loss, No weakness, No diaphoresis, No edema, No loss of appetite Skin: No skin lesions, No rash, No bruising Head: No headache, No light-headedness Eyes: No loss of vision, No pain, No diplopia ENT: No earache, No nasal drainage, No sore throat, No tinnitus Neck: No neck pain, No swelling, No thyromegaly, No stiffness, No mass noted Cardio Vascular: No chest pain, No palpitations, No PND, No orthopnea, No edema Pulmonary: No SOB, No cough, No sputum, No wheezing GI: No nausea, No vomiting, No diarrhea, No pain, No melena, No hematochezia, No constipation, No hematemesis G/U: No dysuria, No frequency, No hematuria Musculoskeletal: No bone or joint pain, No back pain, No muscle pain Endocrine: No polyuria, No polydipsia Psychiatric: Prior psych history, Other (agitation, hitting staff) Hematopoietic: No bruising, No lymphadenopathy Allergic/Immuno: No urticaria, No angioedema Neurological: No syncope, No focal symptoms, No weakness, No paresthesia, No headache, No seizure, No dizziness, No confusion, No vertigo ED Past Medical History - Past Medical History Obtainable: No Past Medical History: DM, Dyslipidemia, PUD/GERD, Thyroid disorder, Dementia, Other (Alzheimer's; Parkinson's; polymyalgia rheumatica) Psychiatricy History: Dementia, Other (Alzheimer's; schizoaffective disorder; neuropathy; psychosis) Family Medical History - Family Member Father History Unknown: Yes Ethnicity: Unknown Living Status: Unknown Hx Family Cancer: No Hx Family Coronary Artery Disease: No Hx Family Congestive Heart Failure: No Hx Family Hypertension: No Hx Family Stroke: No Hx Family Diabetes: No Hx Family Seizures: No Hx Family Dementia: No Hx Family AIDS: No Hx Family HIV: No Hx Family COPD: No Hx Family Hepatitis: No Hx Family Psychiatric Problems: No Hx Family Tuberculosis: No ED Physical Exam - Physical Examination General/Constitutional: Awake, Well-developed, well-nourished, Alert, No distress, GCS 15, Non-toxic appearing, Ambulatory Head: Atraumatic Eyes: Lids, conjuctiva normal, PERRL, EOMI Skin: Nl inspection, No rash, No skin lesions, No ecchymosis, Well hydrated, No lymphadenopathy ENMT: External ears, nose nl, Nasal exam nl, Lips, teeth, gums nl Neck: Nontender, Full ROM w/o pain, No JVD, No nuchal rigidity, No bruit, No mass, No stridor Respiratory: Nl effort/Exclusion, Clear to Auscultation, No Wheeze/Rhonchi/Rales Cardio Vascular: RRR, No murmur, gallop, rubs, NL S1 S2 GI: No tenderness/rebounding/guarding, No organomegaly, No hernia, Normal BS's, Nondistended, No mass/bruits, No McBurney tenderness : No CVA tenderness Extremities: No tenderness or effusion, Full ROM, normal strength in all extremities, No edema, Normal digits & nails Neuro/Psych: Alert/oriented, Normal sensory exam, Normal motor strength, Judgement/insight normal, Mood normal, Normal gait, No focal deficits Misc: Normal back, No paraspinal tenderness ED Labs/Radiology/EKG Results - Lab Results Results: Laboratory Tests 08/22/18 08/22/18 08/22/18 18:27 18:27 18:27 WBC 7.3 RBC 4.38 Hgb 13.8 Hct 41.0 MCV 93.6 MCH 31.4 H MCHC Differential 33.6 RDW 14.2 Plt Count 234 MPV 7.2 Neutrophils % 63.9 Lymphocytes % 26.6 Monocytes % 7.2 Eosinophils % 1.6 Basophils % 0.7 Sodium 139 Potassium 4.3 Chloride 103 Carbon Dioxide 27.6 Anion Gap 12.7 BUN 16 Creatinine 0.7 Est GFR ( Amer) TNP Est GFR (Non-Af Amer) TNP BUN/Creatinine Ratio 22.9 Glucose 93 Calcium 9.1 Phosphorus 3.4 Magnesium 2.2 Total Bilirubin 0.3 AST 12 L ALT 10 Alkaline Phosphatase 69 Total Protein 7.0 Albumin 3.7 L Globulin 3.3 Albumin/Globulin Ratio 1.1 TSH 1.81 Valproic Acid 08/22/18 18:27 WBC RBC Hgb Hct MCV MCH MCHC Differential RDW Plt Count MPV Neutrophils % Lymphocytes % Monocytes % Eosinophils % Basophils % Sodium Potassium Chloride Carbon Dioxide Anion Gap BUN Creatinine Est GFR ( Amer) Est GFR (Non-Af Amer) BUN/Creatinine Ratio Glucose Calcium Phosphorus Magnesium Total Bilirubin AST ALT Alkaline Phosphatase Total Protein Albumin Globulin Albumin/Globulin Ratio TSH Valproic Acid 14.1 L ED Assessment - Assessment General Assessment: patient is resting comfortably. HE IS STABLE FROM A MEDICAL STANDPOINT FOR THE GEROPSCYH UNIT EXCEPT FOR TWO THINGS: HIS VALPROIC ACID LEVEL IS TOO LOW AND HE HAS NOT YET PROVIDED US WITH A URINE SPECIMEN. ED Septic Shock - . Is Septic Shock (SBP<90, OR Lactate>4 mmol\L) present?: No - <6hrs of presentation: Vital Signs: Vital Signs - 8 hr 08/22/18 17:42 Temp 99.1 F HR 95 RR 18 BP 155/86 O2 Sat % 99 ED Reassessment (Disposition) - Reassessment Reassessment Condition:: Unchanged - Diagnosis Diagnosis:: Increased agitation, hitting staff. Low valproic acid level. Alzheimer's Dementia Hyperthyroidism, Diabetes mellitus Dysphagia - Patient Disposition Discharge/Transfer:: Acute Care w/in this hosp Admitted to:: [facility] Condition at Disposition:: Stable, Unchanged
[2018-08-22 21:47] VITALS: BP 110/58
[2018-08-22] MEDS ORDERED: Magnesium Hydroxide (MOM) 30 mL UDC PO PRN (21:56)
--- NOTE | 2018-08-23 00:14 | History & Physical ---
ADMIT DATE: HISTORY OF PRESENT ILLNESS: This 73-year-old male with long history of Parkinson disease, degenerative joint disease, dementia, admitted to [place] under Dr. Stephens's service for evaluation and treatment. There is no chest pain, shortness of breath, nausea, vomiting, fever, or chills. PAST MEDICAL HISTORY: Significant for Parkinson disease, degenerative joint disease, and dementia. PAST SURGICAL HISTORY: No recent surgery. ALLERGIES: SULFA. MEDICATIONS: Follow admission reconciliation. SOCIAL HISTORY: No smoking, no alcohol, no drug. FAMILY HISTORY: Noncontributory. REVIEW OF SYSTEMS: IMMUNO SYSTEM: No history of chronic immune disorder. CARDIOVASCULAR SYSTEM: No coronary artery disease. ENDOCRINE SYSTEM: No diabetes or thyroid problem. GASTROINTESTINAL SYSTEM: No upper or lower GI bleed. NEUROLOGICAL SYSTEM: No seizure disorder. SKELETOMUSCULAR SYSTEM: He has degenerative joint disease. RESPIRATORY SYSTEM: No asthma. GENITOURINARY: No dysuria or hematuria. HEMATOLOGIC SYSTEM: No bleeding tendency. PHYSICAL EXAMINATION: GENERAL: He is awake, not coherent. VITAL SIGNS: Temperature is 97.8, heart rate 82, blood pressure 110/58. HEENT: Normocephalic. Pupils reacting equal to light and accommodation. Sclerae clear. NECK: Supple. Negative for lymphadenopathy, JVD, or bruit. CHEST: Entry of air bilaterally normal. No rhonchi or wheezing. HEART: S1, S2 normal. No gallop rhythm. ABDOMEN: Soft, bowel sounds positive. EXTREMITIES: No edema. NEUROLOGIC: He is awake, alert, not fully oriented. No focal motor or sensory deficits. LABORATORY DATA: White blood cell 7.3, hemoglobin 13.8, hematocrit 41.0, platelets 234. Sodium 139, potassium 4.3, BUN 16, creatinine 0.7. ASSESSMENT: 1. Parkinson disease. 2. Degenerative joint disease. 3. Dementia. 4. Psychosis. PLAN: The patient was admitted to the hospital under Dr. Stephens's service. Medical problem to during hospitalization are psychosis. Medical problems addressed at discharge are Parkinson disease, degenerative joint disease, and dementia. The patient is medically stable for activity. Thank you, Dr. Stephens, for asking me to your patient. The patient is a full code. JOB# [id number]
[2018-08-23] MEDS: Multivitamin w/ Minerals Tab PO SCH (09:36)
[2018-08-23] MEDS: Aspirin 81mg Chewable Tab PO SCH (09:37)
--- NOTE | 2018-08-23 14:53 | General Progress Note ---
Subjective - Review of Systems Service Date: 08/23/18 Subjective: awake and communicative sitting in chair confused Objective - Results Result Diagrams: 08/22/18 18:08/22/18 18: Recent Labs: Laboratory Last Values WBC 7.3 Th/cmm (4.8-10.8) 08/22/18 18: RBC 4.38 Mil/cmm (3.80-5.80) 08/22/18 18: Hgb 13.8 gm/dL (12-16) 08/22/18 18: Hct 41.0 % (41.0-60) 08/22/18: MCV 93.6 fl (80-99) 08/22/18: MCH 31.4 pg (27.0-31.0) H 08/22/18: MCHC Differential 33.6 pg (28.0-36.0) 08/22/18: RDW 14.2 % (11.5-20.0) 08/22/18: Plt Count 234 Th/cmm (150-400) 08/22/18 18: MPV 7.2 fl 08/22/18 18: Neutrophils % 63.9 % (40.0-80.0) 08/22/18: Lymphocytes % 26.6 % (20.0-50.0) 08/22/18: Monocytes % 7.2 % (2.0-10.0) 08/22/18 18: Eosinophils % 1.6 % (0.0-5.0) 08/22/18: Basophils % 0.7 % (0.0-2.0) 08/22/18 18: Sodium 139 mEq/L (136-145) 08/22/18 18: Potassium 4.3 mEq/L (3.5-5.1) 08/22/18 18: Chloride 103 mEq/L (98-107) 08/22/18 18: Carbon Dioxide 27.6 mEq/L (21.0-31.0) 08/22/18 18: Anion Gap 12.7 (7.0-16.0) 08/22/18 18: BUN 16 mg/dL (7-25) 08/22/18 18:27 Creatinine 0.7 mg/dL (0.7-1.3) 08/22/18 18:27 Est GFR ( Amer) TNP 08/22/18 18:27 Est GFR (Non-Af Amer) TNP 08/22/18 18:27 BUN/Creatinine Ratio 22.9 08/22/18 18:27 Glucose 93 mg/dL (70-105) 08/22/18 18:27 Calcium 9.1 mg/dL (8.6-10.3) 08/22/18 18:27 Phosphorus 3.4 mg/dL (2.5-5.0) 08/22/18 18:27 Magnesium 2.2 mg/dL (1.9-2.7) 08/22/18 18: Total Bilirubin 0.3 mg/dL (0.3-1.0) 08/22/18 18:27 AST 12 U/L (13-39) L 08/22/18 18:27 ALT 10 U/L (7-52) 08/22/18 18: Alkaline Phosphatase 69 U/L (34-104) 08/22/18 18:27 Total Protein 7.0 gm/dL (6.0-8.3) 08/22/18 18: Albumin 3.7 gm/dL (4.2-5.5) L 08/22/18 18:27 Globulin 3.3 gm/dL 08/22/18 18:27 Albumin/Globulin Ratio 1.1 (1.0-1.8) 08/22/18 18: TSH 1.81 uIU/ml (0.34-5.60) 08/22/18 18:27 Valproic Acid 14.1 ug/mL (50.0-100.0) L 08/22/18 18:27 - Physical Exam Vitals and I&O: Vital Signs Temp 98.6 F 08/23/18 05:59 Pulse 74 08/23/18 05:59 Resp 18 08/23/18 05:59 BP 120/82 08/23/18 05:59 Pulse Ox 98 08/23/18 05:59 Intake & Output 08/22/18 08/23/18 08/23/18 18:59 06:59 18:59 Weight (lbs) 62.596 kg Other: Weight Source Estimated Active Medications: Current Medications Acetaminophen (Tylenol) 650 mg PO Q4H PRN PRN Reason: Mild Pain / Temp above 100 Stop: 10/21/18 21:52 Aspirin (Aspirin Chewable) 81 mg PO DAILY [facility] Stop: 10/22/18 08:59 Last Admin: 08/23/18 09:37 Dose: 81 mg Calcium/Vitamin D (Oscal W/Vitamin D) 1 tab PO QPM [facility] Stop: 10/22/18 16:59 Carbidopa/Levodopa (Sinemet 25mg-100 Mg) 2 tab PO TID [facility] Stop: 10/22/18 08:59 Last Admin: 08/23/18 14:43 Dose: 2 tab Docusate Sodium (Colace) 100 mg PO BID [facility] Stop: 10/22/18 08:59 Last Admin: 08/23/18 09:37 Dose: 100 mg Famotidine (Pepcid) 20 mg PO DAILY [facility] Stop: 10/22/18 08:59 Last Admin: 08/23/18 09:37 Dose: 20 mg Lorazepam (Ativan) 0.5 mg PO Q4H PRN; Protocol PRN Reason: Anxiety Stop: 10/21/18 21:48 Last Admin: 08/23/18 00:42 Dose: 0.5 mg Magnesium Hydroxide (Milk Of Magnesia) 30 ml PO HS PRN PRN Reason: Constipation Stop: 10/21/18 21:55 Quetiapine Fumarate (Seroquel) 12.5 mg PO HS [facility]; Protocol Stop: 10/22/18 20:59 Valproate Sodium (Depakene) 500 mg PO BID [facility] Stop: 10/22/18 08:59 Last Admin: 08/23/18 09:36 Dose: 500 mg Zolpidem Tartrate (Ambien) 5 mg PO HS PRN PRN Reason: Insomnia Stop: 10/21/18 21:48 General: No acute distress HEENT: Atraumatic, PERRLA Neck: Supple, JVD, Thyromegaly Cardiovascular: Regular rate, Normal S1, Normal S2 Lungs: Clear to auscultation Abdomen: Bowel sounds, Soft - Procedures Procedures: Procedures Procedure Code Date CHANGE FEEDING DEVICE IN UP INTEST TRACT, [employer] DIRECTOR APPROACH [id number] 09/01/17 GROUP PSYCHOTHERAPY 96961 11/29/15 GROUP PSYCHOTHERAPY [id number] 11/29/15 OTHER GROUP THERAPY 94.44 04/04/13 RECREATIONAL THERAPY 93.81 05/12/12 Assessment/Plan - Assessment Assessment: Parkinson's disease DJD dementia - Plan Plan: continue current treatment
[2018-08-23] MEDS: Calcium Carb/Vit D 500 mg/200 U Tab PO SCH (17:18)
--- NOTE | 2018-08-24 00:45 | Psychiatric Evaluation ---
DATE OF SERVICE: 08/22/2018 PSYCHIATRIC EVALUATION AND EXAMINATION IDENTIFYING DATA: The patient is a 73-year-old male, resident of [facility]. Information was obtained by directly interviewing the patient as well as reviewing the admission papers. JUSTIFICATION FOR HOSPITALIZATION: The patient is admitted here on a voluntary basis in view of his acute agitation, aggressive behavior, striking out, and paranoia. CHIEF COMPLAINT: "I should not be in here, I should be back at home." HISTORY OF PRESENT ILLNESS: This is one of multiple psychiatric hospitalizations for this patient, who was under my care in 02/2018. The patient has been diagnosed to have psychosis then, but the patient at this time has been presenting with acute mood swings and agitation. The patient's sleep and appetite prior to the hospitalization are reported to be poor. The patient is also reported to have been striking out and aggressive towards the staff members. The patient had a history of being sexually preoccupied in the past and wanted a female staff to be there in the room, even to change anything. The patient is being followed up by Dr. Gordon on an outpatient basis. PAST PSYCHIATRIC HISTORY: Please refer to the above. MEDICAL HISTORY AND PHYSICAL EXAMINATION: Requested to be done by Dr. Mandujano. SUBSTANCE ABUSE HISTORY: None. PHYSICAL OR SEXUAL ABUSE HISTORY: None. LEGAL PROBLEMS: None at this time. MENTAL STATUS EXAMINATION: The patient is a 73-year-old, looking his stated age, thin built, superficially cooperative. Eye contact is poor. Mood is noted to be irritable. Affect is constricted. Speech is noted to be pressured. The patient is talking nonstop. The patient has flight of ideas. Insight and judgment at this time are noted to be very much impaired. Impulse control is noted to be poor. The patient is very agitated and out of control. The patient's behavior is a clear danger to others. The patient is alert and oriented to the place, but not to the time. The patient is not willing to comply with the treatment in here. DIAGNOSTIC IMPRESSION: AXIS I: Bipolar disorder, mixed with psychotic symptoms. AXIS II: None. AXIS III: As per the Dr. Mandujano. IMMEDIATE TREATMENT PLAN: The patient is going to be observed on an inpatient unit, provided with supportive psychotherapy. The patient is going to be continued on the valproic acid 500 mg b.i.d. and a low dose of the Seroquel is going to be added to contain the patient's aggressive behavior and paranoia. ESTIMATED LENGTH OF STAY: 3-5 days. DISCHARGE CRITERIA: When the patient is no longer a threat to self or others and be able to cope up with the stress. JOB# [id number]
[2018-08-24] MEDS: Aspirin 81mg Chewable Tab PO SCH (08:37)
[2018-08-24] MEDS: Multivitamin w/ Minerals Tab PO SCH (08:38)
[2018-08-24] MEDS: Calcium Carb/Vit D 500 mg/200 U Tab PO SCH (16:13)
--- NOTE | 2018-08-24 16:37 | General Progress Note ---
Subjective - Review of Systems Service Date: 08/24/18 Subjective: awake and communicative sitting in chair confused Objective - Results Result Diagrams: 08/22/18 18:08/22/18 18: Recent Labs: Laboratory Last Values WBC 7.3 Th/cmm (4.8-10.8) 08/22/18 18: RBC 4.38 Mil/cmm (3.80-5.80) 08/22/18 18: Hgb 13.8 gm/dL (12-16) 08/22/18 18: Hct 41.0 % (41.0-60) 08/22/18: MCV 93.6 fl (80-99) 08/22/18: MCH 31.4 pg (27.0-31.0) H 08/22/18: MCHC Differential 33.6 pg (28.0-36.0) 08/22/18: RDW 14.2 % (11.5-20.0) 08/22/18: Plt Count 234 Th/cmm (150-400) 08/22/18 18: MPV 7.2 fl 08/22/18 18: Neutrophils % 63.9 % (40.0-80.0) 08/22/18: Lymphocytes % 26.6 % (20.0-50.0) 08/22/18: Monocytes % 7.2 % (2.0-10.0) 08/22/18 18: Eosinophils % 1.6 % (0.0-5.0) 08/22/18: Basophils % 0.7 % (0.0-2.0) 08/22/18 18: Sodium 139 mEq/L (136-145) 08/22/18 18: Potassium 4.3 mEq/L (3.5-5.1) 08/22/18 18: Chloride 103 mEq/L (98-107) 08/22/18: Carbon Dioxide 27.6 mEq/L (21.0-31.0) 08/22/18 18: Anion Gap 12.7 (7.0-16.0) 08/22/18 18: BUN 16 mg/dL (7-25) 08/22/18 18:27 Creatinine 0.7 mg/dL (0.7-1.3) 08/22/18 18:27 Est GFR ( Amer) TNP 08/22/18 18:27 Est GFR (Non-Af Amer) TNP 08/22/18 18:27 BUN/Creatinine Ratio 22.9 08/22/18 18:27 Glucose 93 mg/dL (70-105) 08/22/18 18: Calcium 9.1 mg/dL (8.6-10.3) 08/22/18 18: Phosphorus 3.4 mg/dL (2.5-5.0) 08/22/18 18: Magnesium 2.2 mg/dL (1.9-2.7) 08/22/18 18: Total Bilirubin 0.3 mg/dL (0.3-1.0) 08/22/18 18:27 AST 12 U/L (13-39) L 08/22/18 18: ALT 10 U/L (7-52) 08/22/18 18: Alkaline Phosphatase 69 U/L (34-104) 08/22/18 18:27 Total Protein 7.0 gm/dL (6.0-8.3) 08/22/18 18: Albumin 3.7 gm/dL (4.2-5.5) L 08/22/18 18: Globulin 3.3 gm/dL 08/22/18 18:27 Albumin/Globulin Ratio 1.1 (1.0-1.8) 08/22/18 18: TSH 1.81 uIU/ml (0.34-5.60) 08/22/18 18: Valproic Acid 14.1 ug/mL (50.0-100.0) L 08/22/18 18:27 - Physical Exam Vitals and I&O: Vital Signs Temp 97.7 F 08/24/18 14:00 Pulse 93 08/24/18 14:00 Resp 20 08/24/18 14:00 BP 115/56 08/24/18 14:00 Pulse Ox 93 08/24/18 14:00 Intake & Output 08/23/18 08/24/18 08/24/18 18:59 06:59 18:59 Intake Total 240 Balance 240 Intake: Oral 240 Other: # Voids 2 # Bowel Movements 1 Active Medications: Current Medications Acetaminophen (Tylenol) 650 mg PO Q4H PRN PRN Reason: Mild Pain / Temp above 100 Stop: 10/21/18 21:52 Aspirin (Aspirin Chewable) 81 mg PO DAILY [facility] Stop: 10/22/18 08:59 Last Admin: 08/24/18 08:37 Dose: 81 mg Calcium/Vitamin D (Oscal W/Vitamin D) 1 tab PO QPM [facility] Stop: 10/22/18 16:59 Last Admin: 08/24/18 16:13 Dose: 1 tab Carbidopa/Levodopa (Sinemet 25mg-100 Mg) 2 tab PO TID [facility] Stop: 10/22/18 08:59 Last Admin: 08/24/18 13:08 Dose: 2 tab Docusate Sodium (Colace) 100 mg PO BID [facility] Stop: 10/22/18 08:59 Last Admin: 08/24/18 16:13 Dose: 100 mg Famotidine (Pepcid) 20 mg PO DAILY [facility] Stop: 10/22/18 08:59 Last Admin: 08/24/18 08:37 Dose: 20 mg Lorazepam (Ativan) 0.5 mg PO Q4H PRN; Protocol PRN Reason: Anxiety Stop: 10/21/18 21:48 Last Admin: 08/23/18 20:35 Dose: 0.5 mg Magnesium Hydroxide (Milk Of Magnesia) 30 ml PO HS PRN PRN Reason: Constipation Stop: 10/21/18 21:55 Quetiapine Fumarate (Seroquel) 12.5 mg PO HS [facility]; Protocol Stop: 10/22/18 20:59 Last Admin: 08/23/18 20:34 Dose: 12.5 mg Valproate Sodium (Depakene) 500 mg PO BID [facility] Stop: 10/22/18 08:59 Last Admin: 08/24/18 16:13 Dose: 500 mg Zolpidem Tartrate (Ambien) 5 mg PO HS PRN PRN Reason: Insomnia Stop: 10/21/18 21:48 General: No acute distress HEENT: Atraumatic, PERRLA Neck: Supple, JVD, Thyromegaly Cardiovascular: Regular rate, Normal S1, Normal S2 Lungs: Clear to auscultation Abdomen: Bowel sounds, Soft - Procedures Procedures: Procedures Procedure Code Date CHANGE FEEDING DEVICE IN UP INTEST TRACT, CANAL BOAT OPERATOR APPROACH [id number] 09/01/17 GROUP PSYCHOTHERAPY 58048 11/29/15 GROUP PSYCHOTHERAPY [id number] 11/29/15 OTHER GROUP THERAPY 94.44 01/15/13 RECREATIONAL THERAPY 93.81 05/12/12 Assessment/Plan - Assessment Assessment: Parkinson's disease DJD dementia - Plan Plan: continue current treatment
--- NOTE | 2018-08-25 04:05 | Progress Notes ---
DATE: 08/24/2018 PSYCHIATRIC PROGRESS NOTE SUBJECTIVE: Staff was spoken to. The patient is interviewed. Mood is noted to be irritable. Affect is constricted. Insight and judgment at this time are noted to be very much impaired. Impulse control is noted to be poor. Coping skills are noted to be very poor. The patient has been having difficult time to cope with the stress. The patient's speech is noted to be pressured. Insight and judgment are noted to be still impaired. ASSESSMENT: The patient is still having mood swings. PLAN: To continue the patient with the supportive therapy and followup. JOB# [id number]
[2018-08-25] MEDS: Aspirin 81mg Chewable Tab PO SCH (09:12)
[2018-08-25] MEDS: Multivitamin w/ Minerals Tab PO SCH (09:12)
[2018-08-25] MEDS: Calcium Carb/Vit D 500 mg/200 U Tab PO SCH (17:17)
--- NOTE | 2018-08-25 20:33 | Internal Medicine Prog Note ---
Internal Medicine Subjective - Subjective Service Date: 08/25/18 Patient seen and examined:: without staff Patient is:: awake, non-verbal, in bed, confused Per staff patient has:: no adverse event Internal Medicine Objective - Results Result Diagrams: 08/22/18 18:08/22/18 18: Recent Labs: Laboratory Last Values WBC 7.3 Th/cmm (4.8-10.8) 08/22/18: RBC 4.38 Mil/cmm (3.80-5.80) 08/22/18 18: Hgb 13.8 gm/dL (12-16) 08/22/18: Hct 41.0 % (41.0-60) 08/22/18: MCV 93.6 fl (80-99) 08/22/18: MCH 31.4 pg (27.0-31.0) H 08/22/18: MCHC Differential 33.6 pg (28.0-36.0) 08/22/18: RDW 14.2 % (11.5-20.0) 08/22/18: Plt Count 234 Th/cmm (150-400) 08/22/18: MPV 7.2 fl 08/22/18: Neutrophils % 63.9 % (40.0-80.0) 08/22/18: Lymphocytes % 26.6 % (20.0-50.0) 08/22/18: Monocytes % 7.2 % (2.0-10.0) 08/22/18: Eosinophils % 1.6 % (0.0-5.0) 08/22/18: Basophils % 0.7 % (0.0-2.0) 08/22/18 18: Sodium 139 mEq/L (136-145) 08/22/18 18: Potassium 4.3 mEq/L (3.5-5.1) 08/22/18: Chloride 103 mEq/L (98-107) 08/22/18: Carbon Dioxide 27.6 mEq/L (21.0-31.0) 08/22/18: Anion Gap 12.7 (7.0-16.0) 08/22/18 18:27 BUN 16 mg/dL (7-25) 08/22/18 18:27 Creatinine 0.7 mg/dL (0.7-1.3) 08/22/18 18:27 Est GFR ( Amer) TNP 08/22/18 18:27 Est GFR (Non-Af Amer) TNP 08/22/18 18:27 BUN/Creatinine Ratio 22.9 08/22/18 18: Glucose 93 mg/dL (70-105) 08/22/18 18: Calcium 9.1 mg/dL (8.6-10.3) 08/22/18 18: Phosphorus 3.4 mg/dL (2.5-5.0) 08/22/18 18: Magnesium 2.2 mg/dL (1.9-2.7) 08/22/18 18: Total Bilirubin 0.3 mg/dL (0.3-1.0) 08/22/18 18: AST 12 U/L (13-39) L 08/22/18 18:27 ALT 10 U/L (7-52) 08/22/18 18: Alkaline Phosphatase 69 U/L (34-104) 08/22/18 18: Total Protein 7.0 gm/dL (6.0-8.3) 08/22/18 18: Albumin 3.7 gm/dL (4.2-5.5) L 08/22/18 18: Globulin 3.3 gm/dL 08/22/18 18: Albumin/Globulin Ratio 1.1 (1.0-1.8) 08/22/18 18: TSH 1.81 uIU/ml (0.34-5.60) 08/22/18 18: Valproic Acid 14.1 ug/mL (50.0-100.0) L 08/22/18 18:27 - Physical Exam Vitals and I&O: Vital Signs Temp 0 F 08/25/18 06:18 Pulse 93 08/24/18 20:32 Resp 20 08/24/18 20:32 BP 110/50 08/24/18 20:32 Pulse Ox 91 08/24/18 20:32 Intake & Output 08/25/18 08/25/18 08/26/18 06:59 18:59 06:59 Intake Total 240 120 Balance 240 120 Intake: Oral 240 120 Other: # Voids 3 2 # Bowel Movements 0 1 1 Active Medications: Current Medications Acetaminophen (Tylenol) 650 mg PO Q4H PRN PRN Reason: Mild Pain / Temp above 100 Stop: 10/21/18 21:52 Aspirin (Aspirin Chewable) 81 mg PO DAILY [facility] Stop: 10/22/18 08:59 Last Admin: 08/25/18 09:12 Dose: 81 mg Calcium/Vitamin D (Oscal W/Vitamin D) 1 tab PO QPM [facility] Stop: 10/22/18 16:59 Last Admin: 08/25/18 17:17 Dose: 1 tab Carbidopa/Levodopa (Sinemet 25mg-100 Mg) 2 tab PO TID [facility] Stop: 10/22/18 08:59 Last Admin: 08/25/18 13:41 Dose: 2 tab Docusate Sodium (Colace) 100 mg PO BID [facility] Stop: 10/22/18 08:59 Last Admin: 08/25/18 17:17 Dose: 100 mg Famotidine (Pepcid) 20 mg PO DAILY [facility] Stop: 10/22/18 08:59 Last Admin: 08/25/18 09:12 Dose: 20 mg Lorazepam (Ativan) 0.5 mg PO Q4H PRN; Protocol PRN Reason: Anxiety Stop: 10/21/18 21:48 Last Admin: 08/23/18 20:35 Dose: 0.5 mg Magnesium Hydroxide (Milk Of Magnesia) 30 ml PO HS PRN PRN Reason: Constipation Stop: 10/21/18 21:55 Quetiapine Fumarate (Seroquel) 25 mg PO HS [facility]; Protocol Stop: 10/24/18 20:59 Valproate Sodium (Depakene) 500 mg PO BID [facility] Stop: 10/22/18 08:59 Last Admin: 08/25/18 17:17 Dose: 500 mg Zolpidem Tartrate (Ambien) 5 mg PO HS PRN PRN Reason: Insomnia Stop: 10/21/18 21:48 General: demented HEENT: NC/AT, PERRLA, EOMI, anicteric sclerae, throat clear Neck: Supple, No JVD, No thyromegaly, +2 carotid pulse wo bruit, No LAD Lungs: CTAB Cardiovascular: RRR, Normal S1, Normal S2, without murmur Abdomen: soft, non-tender, non-distended Extremities: clear Neurological: no change - Procedures Procedures: Procedures Procedure Code Date CHANGE FEEDING DEVICE IN UP INTEST TRACT, VEHICLE [employer] TECHNICIAN APPROACH [id number] 09/01/17 GROUP PSYCHOTHERAPY [id number] 11/29/15 GROUP PSYCHOTHERAPY [id number] 11/29/15 OTHER GROUP THERAPY 94.44 01/15/13 RECREATIONAL THERAPY 93.81 05/12/12 Internal Medicine Assmt/Plan - Assessment Assessment: 1.PARKINSON DISEASE. 2.DJD. 3.DEMENTIA. 4.PSYCHSIS. - Plan Plan: CONTINUE ON CURRENT MEDICATION AND DIET.
--- NOTE | 2018-08-26 02:28 | Progress Notes ---
DATE: 08/25/2018 SUBJECTIVE: Staff spoke to. The patient is interviewed. Mood is noted to be irritable. Affect is constricted. The patient is still having difficult time to cope with the stress. The patient is still yelling and screaming whenever he does not get his way. No side effects to the medications are noted at this time. The patient is currently on Seroquel, which is being given at 12.5 mg and plan to increase the dose to 25 and continue the Depakote and follow the patient with the supportive therapy. Please note that the patient is not ready to be discharged to a lower level of care in view of his acute mood swings. JOB# [id number]
[2018-08-26 08:32] LABS: CHOLESTEROL 218 mg/dL (<200); HDL -HIGH DENSITY LIPOPROTEIN 47 mg/dL (23-92); TRIGLYCERIDES 196 mg/dL (<150)
[2018-08-26] MEDS: Aspirin 81mg Chewable Tab PO SCH (08:44)
[2018-08-26] MEDS: Multivitamin w/ Minerals Tab PO SCH (08:44)
--- NOTE | 2018-08-26 14:15 | Progress Notes ---
DATE: 08/26/2018 SUBJECTIVE: Staff was spoken to. The patient is interviewed. Mood is noted to be irritable. Affect is constricted. Insight and judgment at this time are noted to be still impaired. Impulse control is noted to be limited. Coping skills are noted to be limited. The patient has to be redirected constantly. No side effects to medications are noted. The patient is currently on the Seroquel and Depakote. Depakote is being 500 mg twice a day, Seroquel 25 mg at bedtime. The patient has been able to tolerate the medications. ASSESSMENT: The patient is still impulsive and psychotic. PLAN: To continue the patient with the supportive therapy, encouraged the patient to verbalize the concerns rather than to act out. JOB# [id number]
[2018-08-26] MEDS: Calcium Carb/Vit D 500 mg/200 U Tab PO SCH (16:18)
--- NOTE | 2018-08-26 20:18 | Internal Medicine Prog Note ---
Internal Medicine Subjective - Subjective Service Date: 08/26/18 Patient seen and examined:: with staff Patient is:: awake, non-verbal, in bed, confused Per staff patient has:: no adverse event Internal Medicine Objective - Results Result Diagrams: 08/22/18 18:08/22/18 18: Recent Labs: Laboratory Last Values WBC 7.3 Th/cmm (4.8-10.8) 08/22/18 18: RBC 4.38 Mil/cmm (3.80-5.80) 08/22/18 18: Hgb 13.8 gm/dL (12-16) 08/22/18: Hct 41.0 % (41.0-60) 08/22/18: MCV 93.6 fl (80-99) 08/22/18: MCH 31.4 pg (27.0-31.0) H 08/22/18: MCHC Differential 33.6 pg (28.0-36.0) 08/22/18: RDW 14.2 % (11.5-20.0) 08/22/18: Plt Count 234 Th/cmm (150-400) 08/22/18 18: MPV 7.2 fl 08/22/18: Neutrophils % 63.9 % (40.0-80.0) 08/22/18: Lymphocytes % 26.6 % (20.0-50.0) 08/22/18: Monocytes % 7.2 % (2.0-10.0) 08/22/18: Eosinophils % 1.6 % (0.0-5.0) 08/22/18: Basophils % 0.7 % (0.0-2.0) 08/22/18 18: Sodium 139 mEq/L (136-145) 08/22/18 18: Potassium 4.3 mEq/L (3.5-5.1) 08/22/18 18: Chloride 103 mEq/L (98-107) 08/22/18: Carbon Dioxide 27.6 mEq/L (21.0-31.0) 08/22/18: Anion Gap 12.7 (7.0-16.0) 08/22/18 18: BUN 16 mg/dL (7-25) 08/22/18 18: Creatinine 0.7 mg/dL (0.7-1.3) 08/22/18 18: Est GFR ( Amer) TNP 08/22/18 18: Est GFR (Non-Af Amer) TNP 08/22/18 18: BUN/Creatinine Ratio 22.9 08/22/18 18: Glucose 93 mg/dL (70-105) 08/22/18 18: Calcium 9.1 mg/dL (8.6-10.3) 08/22/18: Phosphorus 3.4 mg/dL (2.5-5.0) 08/22/18: Magnesium 2.2 mg/dL (1.9-2.7) 08/22/18: Total Bilirubin 0.3 mg/dL (0.3-1.0) 08/22/18: AST 12 U/L (13-39) L 08/22/18: ALT 10 U/L (7-52) 08/22/18: Alkaline Phosphatase 69 U/L (34-104) 08/22/18: Total Protein 7.0 gm/dL (6.0-8.3) 08/22/18: Albumin 3.7 gm/dL (4.2-5.5) L 08/22/18: Globulin 3.3 gm/dL 08/22/18: Albumin/Globulin Ratio 1.1 (1.0-1.8) 08/22/18 18: Triglycerides 196 mg/dL (<150) H 08/22/18 18: Cholesterol 218 mg/dL (<200) H 08/22/18 18: LDL Cholesterol Direct 138 mg/dL (75-193) 08/22/18: HDL Cholesterol 47 mg/dL (23-92) 08/22/18: TSH 1.81 uIU/ml (0.34-5.60) 08/22/18 18: Valproic Acid 14.1 ug/mL (50.0-100.0) L 08/22/18 18: - Physical Exam Vitals and I&O: Vital Signs Temp 98.2 F 08/26/18 20:11 Pulse 78 08/26/18 20:11 Resp 18 08/26/18 20:11 BP 118/72 08/26/18 20:11 Pulse Ox 97 08/26/18 20:11 Intake & Output 08/26/18 08/26/18 08/27/18 06:59 18:59 06:59 Intake Total 120 120 Balance 120 120 Intake: Oral 120 120 Other: # Voids 2 3 # Bowel Movements 1 0 Active Medications: Current Medications Acetaminophen (Tylenol) 650 mg PO Q4H PRN PRN Reason: Mild Pain / Temp above 100 Stop: 10/21/18 21:52 Aspirin (Aspirin Chewable) 81 mg PO DAILY [facility] Stop: 10/22/18 08:59 Last Admin: 08/26/18 08:44 Dose: 81 mg Calcium/Vitamin D (Oscal W/Vitamin D) 1 tab PO QPM [facility] Stop: 10/22/18 16:59 Last Admin: 08/26/18 16:18 Dose: 1 tab Carbidopa/Levodopa (Sinemet 25mg-100 Mg) 2 tab PO TID [facility] Stop: 10/22/18 08:59 Last Admin: 08/26/18 14:20 Dose: 2 tab Docusate Sodium (Colace) 100 mg PO BID [facility] Stop: 10/22/18 08:59 Last Admin: 08/26/18 16:18 Dose: 100 mg Famotidine (Pepcid) 20 mg PO DAILY [facility] Stop: 10/22/18 08:59 Last Admin: 08/26/18 08:44 Dose: 20 mg Lorazepam (Ativan) 0.5 mg PO Q4H PRN; Protocol PRN Reason: Anxiety Stop: 10/21/18 21:48 Last Admin: 08/23/18 20:35 Dose: 0.5 mg Magnesium Hydroxide (Milk Of Magnesia) 30 ml PO HS PRN PRN Reason: Constipation Stop: 10/21/18 21:55 Quetiapine Fumarate (Seroquel) 25 mg PO HS [facility]; Protocol Stop: 10/24/18 20:59 Last Admin: 08/25/18 20:39 Dose: 25 mg Valproate Sodium (Depakene) 500 mg PO BID [facility] Stop: 10/22/18 08:59 Last Admin: 08/26/18 16:18 Dose: 500 mg Zolpidem Tartrate (Ambien) 5 mg PO HS PRN PRN Reason: Insomnia Stop: 10/21/18 21:48 General: demented HEENT: NC/AT, PERRLA, EOMI, anicteric sclerae, throat clear Neck: Supple, No JVD, No thyromegaly, +2 carotid pulse wo bruit, No LAD Lungs: CTAB Cardiovascular: RRR, Normal S1, Normal S2, without murmur Abdomen: soft, non-tender, non-distended Extremities: clear Neurological: no change - Procedures Procedures: Procedures Procedure Code Date CHANGE FEEDING DEVICE IN UP INTEST TRACT, FACING END TRIMMER APPROACH [id number] 09/01/17 GROUP PSYCHOTHERAPY 68353 11/29/15 GROUP PSYCHOTHERAPY GZHZZZZ 11/29/15 OTHER GROUP THERAPY 94.44 01/15/13 RECREATIONAL THERAPY 93.81 05/12/12 Internal Medicine Assmt/Plan - Assessment Assessment: 1.PARKINSON DISEASE. 2.DJD. 3.DEMENTIA. 4.PSYCHSIS. - Plan Plan: CONTINUE ON CURRENT MEDICATION AND DIET. Nutritional Asmnt/Malnutr-PDOC - Dietary Evaluation Malnutrition Findings (Please click <Entered> for more info): Nutritional Asmnt/Malnutrition Start: 08/26/18 13: 53 Text: Status: Complete Freq: Protocol: Document 08/26/18 13:53 LCLUIS FERNANDOG (Rec: 08/26/18 14:14 LCLUIS FERNANDOG [email or web address]) Nutritional Asmnt/Malnutrition Patient General Information Nutritional Screening Moderate Risk Diagnosis psychosis Pertinent Medical Hx/Surgical Hx DM, dyslipidemia, PUD/GERD, thyroid disorder, dementia, alzheimer/s, parkinson/s, polymyalgia rheumatica, schizoaffective disorder, neuropathy, psychosis Subjective Information Pt seen eating in dining room, very confused with unclear speech. Verified pt consumed 100% of lunch today. Per EMR, PO intake mostly 75-100%. Current Diet Order/ Nutrition Support CCHO 90gm, puree, large portions, HPN three times a day for supplement Pertinent Medications oscal w/vit D, colace, pepcid, seroquel Pertinent Labs 08/22 Alb 3.7, glucose 93 Nutritional Hx/Data Height 1.83 m Height (Calculated Centimeters) 182.9 Current Weight (lbs) 62.596 kg Weight (Calculated Kilograms) 62.6 Weight (Calculated Grams) 33203.7 [place] Body Weight 178 Body Mass Index (BMI) 18.7 Weight Status Approriate GI Symptoms GI Symptoms None Last BM 08/25 x 2 Difficult in: None Skin Integrity/Comment: intact Current %PO Good (75-100%) Estimated Nutritional Goals BEE in Kcals: Using Current wt Calories/Kcals/Kg 27-32 Kcals Calculated 7420-0429 Protein: Using Current wt Protein g/k-1.2 Protein Calculated 63-76 Fluid: ml 1700-2015ml (1ml/kcal) Nutritional Problem No current Nutrition Prob Problem N/A Malnutrition Alert Is there a minimum of two criteria No selected? Query Text:Check all the applicable criteria. A minimum of two criteria are recommended for diagnosis of either severe or non-severe malnutrition. Malnutrition Related to Morbid Obesity Malnutrition related to morbid obesity No Intervention/Recommendation Comments 1. Recommend regular diet for liberalization d/t glucose WNL and pt is not on diabetic medication. 2. Monitor PO intake, wt, labs and skin integrity 3. F/U as low risk in 7 days, 09/02 Expected Outcomes/Goals Expected Outcomes/Goals 1. PO intake to meet at least 75% of nutritional needs. 2. Wt stability, skin to remain intact, labs to approach WNL.
--- NOTE | 2018-08-26 20:44 | Consultation ---
DATE OF CONSULTATION: 08/25/2018 REFERRING PHYSICIAN: Jeff Stephens MD TYPE OF CONSULTATION: Psychology. HISTORY OF PRESENT ILLNESS: The patient is a 73-year-old male. The following is by review of the medical record and by the patient's self report. The patient is a resident of [facility]. 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 The patient is being admitted due to acute agitation as well as aggressive behavior, i.e., striking out at staff. Upon interview, the patient seems to present with being preoccupied by female staff. The staff at the patient's facility report acute mood swings and agitation as well as striking out and aggressive behavior. The patient denied any current suicidal ideation, plan or intention. The patient states he does not know why he is being hospitalized and that he needs to be discharged. PAST MEDICAL HISTORY: Please see history and physical by Dr. Mandujano. PAST PSYCHIATRIC HISTORY: The patient has a history of bipolar disorder. The patient is under the care of a psychiatrist at his placement. SUBSTANCE ABUSE HISTORY: No history of alcohol, tobacco, or illicit drug use. PSYCHOSOCIAL HISTORY: The patient did not respond to these questions. The patient states no family involvement in his care and no identifiable support system other than the staff at the patient's facility. The patient did not answer questions about history and physical or sexual abuse or current legal problems. The patient did not answer questions about occupational or educational history or baptist affiliation. The patient is requesting to be returned to his placement. MENTAL STATUS EXAMINATION: The patient appears to be his stated age. The patient's attitude is guarded, but superficially cooperative. Eye contact is poor. Speech is spontaneous. Mood is irritable. Affect is constricted. Thought process shows perseveration and possible responding to inner dialogue. The patient's speech became pressured and continued without stopping. The patient did not respond to the cognitive redirection. The patient is presenting with flight of ideas. He denied any auditory or visual hallucinations. The patient had earlier denied any suicidal ideation, plan or intention. The patient's behavior has been poorly redirectable. Impulse control is inadequate. Sensorium is alert and oriented to self and place. Concentration is poor. The patient did not participate in the memory assessment and was agitated and unredirectable for the remainder of the clinical interview. He did not participate in the interpretation of proverbs. Insight is impaired. Judgment is impaired. DIAGNOSTIC IMPRESSION: AXIS I: Bipolar disorder, mixed with psychotic symptoms. AXIS II: Deferred. AXIS III: Per Dr. Mandujano. TREATMENT PLAN: The patient has been seen by Dr. Stephens for psychiatric evaluation and for the management of the patient's psychotropic medications. We will provide reality orientation, differentiation and integration. We will provide de-escalation as well as limit setting. We will provide boundary definitions and awareness. We will provide stress management to increase the patient's frustration tolerance. The patient's behavior presents as unwilling to comply with treatment. Therefore, motivational enhancement will be provided daily to encourage the patient to become compliant and stay compliant with all aspects of his care and treatment. We will encourage the patient to be able to demonstrate emotional and self-regulation prior to his discharge. We will require the patient to verbally contract for safety regarding harm to others as well as harm to self prior to discharge. We will provide coping strategies for phase of life issues as well as for chronic severe long-term mental illness. Thank you, Dr. Stephens, for this consult and the opportunity to participate in this patient's care. JOB# [id number] JOSE
[2018-08-27] MEDS: Aspirin 81mg Chewable Tab PO SCH (08:51)
[2018-08-27] MEDS: Multivitamin w/ Minerals Tab PO SCH (08:51)
[2018-08-27] MEDS: Calcium Carb/Vit D 500 mg/200 U Tab PO SCH (17:03)
--- NOTE | 2018-08-27 20:14 | Internal Medicine Prog Note ---
Internal Medicine Subjective - Subjective Service Date: 08/27/18 Patient seen and examined:: with staff Patient is:: awake, non-verbal, in bed, confused Per staff patient has:: no adverse event Internal Medicine Objective - Results Result Diagrams: 08/22/18 18:08/22/18 18: Recent Labs: Laboratory Last Values WBC 7.3 Th/cmm (4.8-10.8) 08/22/18: RBC 4.38 Mil/cmm (3.80-5.80) 08/22/18 18: Hgb 13.8 gm/dL (12-16) 08/22/18: Hct 41.0 % (41.0-60) 08/22/18: MCV 93.6 fl (80-99) 08/22/18: MCH 31.4 pg (27.0-31.0) H 08/22/18: MCHC Differential 33.6 pg (28.0-36.0) 08/22/18: RDW 14.2 % (11.5-20.0) 08/22/18: Plt Count 234 Th/cmm (150-400) 08/22/18: MPV 7.2 fl 08/22/18: Neutrophils % 63.9 % (40.0-80.0) 08/22/18: Lymphocytes % 26.6 % (20.0-50.0) 08/22/18: Monocytes % 7.2 % (2.0-10.0) 08/22/18: Eosinophils % 1.6 % (0.0-5.0) 08/22/18: Basophils % 0.7 % (0.0-2.0) 08/22/18 18: Sodium 139 mEq/L (136-145) 08/22/18 18: Potassium 4.3 mEq/L (3.5-5.1) 08/22/18: Chloride 103 mEq/L (98-107) 08/22/18: Carbon Dioxide 27.6 mEq/L (21.0-31.0) 08/22/18: Anion Gap 12.7 (7.0-16.0) 08/22/18 18: BUN 16 mg/dL (7-25) 08/22/18 18: Creatinine 0.7 mg/dL (0.7-1.3) 08/22/18 18: Est GFR ( Amer) TNP 08/22/18 18: Est GFR (Non-Af Amer) TNP 08/22/18 18: BUN/Creatinine Ratio 22.9 08/22/18 18: Glucose 93 mg/dL (70-105) 08/22/18 18: Calcium 9.1 mg/dL (8.6-10.3) 08/22/18: Phosphorus 3.4 mg/dL (2.5-5.0) 08/22/18: Magnesium 2.2 mg/dL (1.9-2.7) 08/22/18: Total Bilirubin 0.3 mg/dL (0.3-1.0) 08/22/18: AST 12 U/L (13-39) L 08/22/18: ALT 10 U/L (7-52) 08/22/18: Alkaline Phosphatase 69 U/L (34-104) 08/22/18: Total Protein 7.0 gm/dL (6.0-8.3) 08/22/18: Albumin 3.7 gm/dL (4.2-5.5) L 08/22/18: Globulin 3.3 gm/dL 08/22/18: Albumin/Globulin Ratio 1.1 (1.0-1.8) 08/22/18 18: Triglycerides 196 mg/dL (<150) H 08/22/18 18: Cholesterol 218 mg/dL (<200) H 08/22/18 18: LDL Cholesterol Direct 138 mg/dL (75-193) 08/22/18: HDL Cholesterol 47 mg/dL (23-92) 08/22/18: TSH 1.81 uIU/ml (0.34-5.60) 08/22/18 18: Valproic Acid 14.1 ug/mL (50.0-100.0) L 08/22/18 18: - Physical Exam Vitals and I&O: Vital Signs Temp 97.6 F 08/27/18 14:00 Pulse 96 08/27/18 14:00 Resp 20 08/27/18 14:00 BP 123/70 08/27/18 14:00 Pulse Ox 97 08/27/18 14:00 Intake & Output 08/27/18 08/27/18 08/28/18 06:59 18:59 06:59 Intake Total 180 800 Balance 180 800 Intake: Oral 180 800 Other: # Voids 1 3 # Bowel Movements 1 1 Active Medications: Current Medications Acetaminophen (Tylenol) 650 mg PO Q4H PRN PRN Reason: Mild Pain / Temp above 100 Stop: 10/21/18 21:52 Aspirin (Aspirin Chewable) 81 mg PO DAILY [facility] Stop: 10/22/18 08:59 Last Admin: 08/27/18 08:51 Dose: 81 mg Calcium/Vitamin D (Oscal W/Vitamin D) 1 tab PO QPM [facility] Stop: 10/22/18 16:59 Last Admin: 08/27/18 17:03 Dose: 1 tab Carbidopa/Levodopa (Sinemet 25mg-100 Mg) 2 tab PO TID [facility] Stop: 10/22/18 08:59 Last Admin: 08/27/18 14:25 Dose: 2 tab Docusate Sodium (Colace) 100 mg PO BID [facility] Stop: 10/22/18 08:59 Last Admin: 08/27/18 17:03 Dose: 100 mg Famotidine (Pepcid) 20 mg PO DAILY [facility] Stop: 10/22/18 08:59 Last Admin: 08/27/18 08:51 Dose: 20 mg Lorazepam (Ativan) 0.5 mg PO Q4H PRN; Protocol PRN Reason: Anxiety Stop: 10/21/18 21:48 Last Admin: 08/23/18 20:35 Dose: 0.5 mg Magnesium Hydroxide (Milk Of Magnesia) 30 ml PO HS PRN PRN Reason: Constipation Stop: 10/21/18 21:55 Quetiapine Fumarate (Seroquel) 50 mg PO HS [facility]; Protocol Stop: 10/26/18 20:59 Valproate Sodium (Depakene) 500 mg PO BID [facility] Stop: 10/22/18 08:59 Last Admin: 08/27/18 17:03 Dose: 500 mg Zolpidem Tartrate (Ambien) 5 mg PO HS PRN PRN Reason: Insomnia Stop: 10/21/18 21:48 General: demented HEENT: NC/AT, PERRLA, EOMI, anicteric sclerae, throat clear Neck: Supple, No JVD, No thyromegaly, +2 carotid pulse wo bruit, No LAD Lungs: CTAB Cardiovascular: RRR, Normal S1, Normal S2, without murmur Abdomen: soft, non-tender, non-distended Extremities: clear Neurological: no change - Procedures Procedures: Procedures Procedure Code Date CHANGE FEEDING DEVICE IN UP INTEST TRACT, HIGH PRESSURE OPERATOR APPROACH [id number] 09/01/17 GROUP PSYCHOTHERAPY 05573 11/29/15 GROUP PSYCHOTHERAPY GZHZZZZ 11/29/15 OTHER GROUP THERAPY 94.44 01/15/13 RECREATIONAL THERAPY 93.81 05/12/12 Internal Medicine Assmt/Plan - Assessment Assessment: 1.PARKINSON DISEASE. 2.DJD. 3.DEMENTIA. 4.PSYCHSIS. - Plan Plan: CONTINUE ON CURRENT MEDICATION AND DIET. Nutritional Asmnt/Malnutr-PDOC - Dietary Evaluation Malnutrition Findings (Please click <Entered> for more info): Nutritional Asmnt/Malnutrition Start: 08/26/18 13: 53 Text: Status: Complete Freq: Protocol: Document 08/26/18 13:53 ATIFG (Rec: 08/26/18 14:14 [email or web address] [email or web address]) Nutritional Asmnt/Malnutrition Patient General Information Nutritional Screening Moderate Risk Diagnosis psychosis Pertinent Medical Hx/Surgical Hx DM, dyslipidemia, PUD/GERD, thyroid disorder, dementia, alzheimer/s, parkinson/s, polymyalgia rheumatica, schizoaffective disorder, neuropathy, psychosis Subjective Information Pt seen eating in dining room, very confused with unclear speech. Verified pt consumed 100% of lunch today. Per EMR, PO intake mostly 75-100%. Current Diet Order/ Nutrition Support CCHO 90gm, puree, large portions, HPN three times a day for supplement Pertinent Medications oscal w/vit D, colace, pepcid, seroquel Pertinent Labs 08/22 Alb 3.7, glucose 93 Nutritional Hx/Data Height 1.83 m Height (Calculated Centimeters) 182.9 Current Weight (lbs) 62.596 kg Weight (Calculated Kilograms) 62.6 Weight (Calculated Grams) 77659.7 [place] Body Weight 178 Body Mass Index (BMI) 18.7 Weight Status Approriate GI Symptoms GI Symptoms None Last BM 08/25 x 2 Difficult in: None Skin Integrity/Comment: intact Current %PO Good (75-100%) Estimated Nutritional Goals BEE in Kcals: Using Current wt Calories/Kcals/Kg 27-32 Kcals Calculated 4526-5707 Protein: Using Current wt Protein g/k-1.2 Protein Calculated 63-76 Fluid: ml 170-2015ml (1ml/kcal) Nutritional Problem No current Nutrition Prob Problem N/A Malnutrition Alert Is there a minimum of two criteria No selected? Query Text:Check all the applicable criteria. A minimum of two criteria are recommended for diagnosis of either severe or non-severe malnutrition. Malnutrition Related to Morbid Obesity Malnutrition related to morbid obesity No Intervention/Recommendation Comments 1. Recommend regular diet for liberalization d/t glucose WNL and pt is not on diabetic medication. 2. Monitor PO intake, wt, labs and skin integrity 3. F/U as low risk in 7 days, 09/02 Expected Outcomes/Goals Expected Outcomes/Goals 1. PO intake to meet at least 75% of nutritional needs. 2. Wt stability, skin to remain intact, labs to approach WNL.
--- NOTE | 2018-08-28 03:29 | Progress Notes ---
DATE: 08/27/2018 SUBJECTIVE: Staff was spoken to. The patient is interviewed. Mood is noted to be irritable. Affect is constricted. The patient is talking nonstop. The patient's coping skills are noted to be very poor. Continues to be very paranoid. ASSESSMENT: The patient is still psychotic. PLAN: To increase the dose of the Seroquel to 50 mg and follow the patient with the supportive therapy. JOB# [id number]
[2018-08-28] MEDS: Aspirin 81mg Chewable Tab PO SCH (09:32)
[2018-08-28] MEDS: Multivitamin w/ Minerals Tab PO SCH (09:33)
[2018-08-28] MEDS: Calcium Carb/Vit D 500 mg/200 U Tab PO SCH (17:13)
--- NOTE | 2018-08-28 21:06 | Internal Medicine Prog Note ---
Internal Medicine Subjective - Subjective Service Date: 08/28/18 Patient seen and examined:: with staff Patient is:: awake, non-verbal, in bed, confused Per staff patient has:: no adverse event Internal Medicine Objective - Results Result Diagrams: 08/22/18 18:08/22/18 18: Recent Labs: Laboratory Last Values WBC 7.3 Th/cmm (4.8-10.8) 08/22/18 18: RBC 4.38 Mil/cmm (3.80-5.80) 08/22/18 18: Hgb 13.8 gm/dL (12-16) 08/22/18: Hct 41.0 % (41.0-60) 08/22/18: MCV 93.6 fl (80-99) 08/22/18: MCH 31.4 pg (27.0-31.0) H 08/22/18: MCHC Differential 33.6 pg (28.0-36.0) 08/22/18: RDW 14.2 % (11.5-20.0) 08/22/18: Plt Count 234 Th/cmm (150-400) 08/22/18 18: MPV 7.2 fl 08/22/18: Neutrophils % 63.9 % (40.0-80.0) 08/22/18: Lymphocytes % 26.6 % (20.0-50.0) 08/22/18: Monocytes % 7.2 % (2.0-10.0) 08/22/18: Eosinophils % 1.6 % (0.0-5.0) 08/22/18: Basophils % 0.7 % (0.0-2.0) 08/22/18 18: Sodium 139 mEq/L (136-145) 08/22/18 18: Potassium 4.3 mEq/L (3.5-5.1) 08/22/18 18: Chloride 103 mEq/L (98-107) 08/22/18: Carbon Dioxide 27.6 mEq/L (21.0-31.0) 08/22/18: Anion Gap 12.7 (7.0-16.0) 08/22/18 18: BUN 16 mg/dL (7-25) 08/22/18 18: Creatinine 0.7 mg/dL (0.7-1.3) 08/22/18 18: Est GFR ( Amer) TNP 08/22/18 18: Est GFR (Non-Af Amer) TNP 08/22/18 18: BUN/Creatinine Ratio 22.9 08/22/18 18: Glucose 93 mg/dL (70-105) 08/22/18 18: Calcium 9.1 mg/dL (8.6-10.3) 08/22/18: Phosphorus 3.4 mg/dL (2.5-5.0) 08/22/18: Magnesium 2.2 mg/dL (1.9-2.7) 08/22/18: Total Bilirubin 0.3 mg/dL (0.3-1.0) 08/22/18: AST 12 U/L (13-39) L 08/22/18: ALT 10 U/L (7-52) 08/22/18: Alkaline Phosphatase 69 U/L (34-104) 08/22/18: Total Protein 7.0 gm/dL (6.0-8.3) 08/22/18: Albumin 3.7 gm/dL (4.2-5.5) L 08/22/18: Globulin 3.3 gm/dL 08/22/18: Albumin/Globulin Ratio 1.1 (1.0-1.8) 08/22/18 18: Triglycerides 196 mg/dL (<150) H 08/22/18 18: Cholesterol 218 mg/dL (<200) H 08/22/18 18: LDL Cholesterol Direct 138 mg/dL (75-193) 08/22/18: HDL Cholesterol 47 mg/dL (23-92) 08/22/18: TSH 1.81 uIU/ml (0.34-5.60) 08/22/18 18: Valproic Acid 14.1 ug/mL (50.0-100.0) L 08/22/18 18: - Physical Exam Vitals and I&O: Vital Signs Temp 98.4 F 08/28/18 19:56 Pulse 70 08/28/18 19:56 Resp 20 08/28/18 20:00 BP 110/65 08/28/18 19:56 Pulse Ox 96 08/28/18 19:56 Intake & Output 08/28/18 08/28/18 08/29/18 06:59 18:59 06:59 Intake Total 120 1200 240 Balance 120 1200 240 Intake: Oral 120 1200 240 Other: # Voids 3 2 # Bowel Movements 1 Stool Characteristics Soft Soft Active Medications: Current Medications Acetaminophen (Tylenol) 650 mg PO Q4H PRN PRN Reason: Mild Pain / Temp above 100 Stop: 10/21/18 21:52 Aspirin (Aspirin Chewable) 81 mg PO DAILY [facility] Stop: 10/22/18 08:59 Last Admin: 08/28/18 09:32 Dose: 81 mg Calcium/Vitamin D (Oscal W/Vitamin D) 1 tab PO QPM [facility] Stop: 10/22/18 16:59 Last Admin: 08/28/18 17:13 Dose: 1 tab Carbidopa/Levodopa (Sinemet 25mg-100 Mg) 2 tab PO TID [facility] Stop: 10/22/18 08:59 Last Admin: 08/28/18 20:39 Dose: 2 tab Docusate Sodium (Colace) 100 mg PO BID [facility] Stop: 10/22/18 08:59 Last Admin: 08/28/18 17:12 Dose: 100 mg Famotidine (Pepcid) 20 mg PO DAILY [facility] Stop: 10/22/18 08:59 Last Admin: 08/28/18 09:33 Dose: 20 mg Lorazepam (Ativan) 0.5 mg PO Q4H PRN; Protocol PRN Reason: Anxiety Stop: 10/21/18 21:48 Last Admin: 08/28/18 15:19 Dose: 0.5 mg Magnesium Hydroxide (Milk Of Magnesia) 30 ml PO HS PRN PRN Reason: Constipation Stop: 10/21/18 21:55 Quetiapine Fumarate (Seroquel) 50 mg PO BID [facility]; Protocol Stop: 10/28/18 08:59 Valproate Sodium (Depakene) 500 mg PO BID [facility] Stop: 10/22/18 08:59 Last Admin: 08/28/18 17:12 Dose: 500 mg Zolpidem Tartrate (Ambien) 5 mg PO HS PRN PRN Reason: Insomnia Stop: 10/21/18 21:48 Last Admin: 08/28/18 20:40 Dose: 5 mg General: demented HEENT: NC/AT, PERRLA, EOMI, anicteric sclerae, throat clear Neck: Supple, No JVD, No thyromegaly, +2 carotid pulse wo bruit, No LAD Lungs: CTAB Cardiovascular: RRR, Normal S1, Normal S2, without murmur Abdomen: soft, non-tender, non-distended Extremities: clear Neurological: no change - Procedures Procedures: Procedures Procedure Code Date CHANGE FEEDING DEVICE IN UP INTEST TRACT, APPRENTICE PLUMBER APPROACH [id number] 09/01/17 GROUP PSYCHOTHERAPY 94906 11/29/15 GROUP PSYCHOTHERAPY GZHZZZZ 11/29/15 OTHER GROUP THERAPY 94.44 01/15/13 RECREATIONAL THERAPY 93.81 05/12/12 Internal Medicine Assmt/Plan - Assessment Assessment: 1.PARKINSON DISEASE. 2.DJD. 3.DEMENTIA. 4.PSYCHSIS. - Plan Plan: CONTINUE ON CURRENT MEDICATION AND DIET. Nutritional Asmnt/Malnutr-PDOC - Dietary Evaluation Malnutrition Findings (Please click <Entered> for more info): Nutritional Asmnt/Malnutrition Start: 08/26/18 13: 53 Text: Status: Complete Freq: Protocol: Document 08/26/18 13:53 LCHENG (Rec: 08/26/18 14:14 [email or web address]) Nutritional Asmnt/Malnutrition Patient General Information Nutritional Screening Moderate Risk Diagnosis psychosis Pertinent Medical Hx/Surgical Hx DM, dyslipidemia, PUD/GERD, thyroid disorder, dementia, alzheimer/s, parkinson/s, polymyalgia rheumatica, schizoaffective disorder, neuropathy, psychosis Subjective Information Pt seen eating in dining room, very confused with unclear speech. Verified pt consumed 100% of lunch today. Per EMR, PO intake mostly 75-100%. Current Diet Order/ Nutrition Support CCHO 90gm, puree, large portions, HPN three times a day for supplement Pertinent Medications oscal w/vit D, colace, pepcid, seroquel Pertinent Labs 08/22 Alb 3.7, glucose 93 Nutritional Hx/Data Height 1.83 m Height (Calculated Centimeters) 182.9 Current Weight (lbs) 62.596 kg Weight (Calculated Kilograms) 62.6 Weight (Calculated Grams) 73029.7 [place] Body Weight 178 Body Mass Index (BMI) 18.7 Weight Status Approriate GI Symptoms GI Symptoms None Last BM 08/25 x 2 Difficult in: None Skin Integrity/Comment: intact Current %PO Good (75-100%) Estimated Nutritional Goals BEE in Kcals: Using Current wt Calories/Kcals/Kg 27-32 Kcals Calculated 9840-1053 Protein: Using Current wt Protein g/k-1.2 Protein Calculated 63-76 Fluid: ml 170-2015ml (1ml/kcal) Nutritional Problem No current Nutrition Prob Problem N/A Malnutrition Alert Is there a minimum of two criteria No selected? Query Text:Check all the applicable criteria. A minimum of two criteria are recommended for diagnosis of either severe or non-severe malnutrition. Malnutrition Related to Morbid Obesity Malnutrition related to morbid obesity No Intervention/Recommendation Comments 1. Recommend regular diet for liberalization d/t glucose WNL and pt is not on diabetic medication. 2. Monitor PO intake, wt, labs and skin integrity 3. F/U as low risk in 7 days, 09/02 Expected Outcomes/Goals Expected Outcomes/Goals 1. PO intake to meet at least 75% of nutritional needs. 2. Wt stability, skin to remain intact, labs to approach WNL.
--- NOTE | 2018-08-29 04:44 | Progress Notes ---
DATE: 08/28/2018 SUBJECTIVE: Staff was spoken to. The patient is interviewed. Mood is noted to be irritable. Affect is constricted. The patient is keep on talking and even when the dose of the medication has been increased is not making much sense. Coping skills at this time are noted to be still poor. The patient is currently on 500 mg of the Depakote and Seroquel is being given at 50 mg at bedtime. Plan to increase the dose of the Seroquel to 50 mg twice a day and follow the patient with the supportive therapy. ASSESSMENT: The patient is still impulsive and psychotic. PLAN: To continue the patient with the above changes in the medication and follow up with the supportive therapy. JOB# [id number]
[2018-08-29] MEDS: Multivitamin w/ Minerals Tab PO SCH (09:10)
[2018-08-29] MEDS: Aspirin 81mg Chewable Tab PO SCH (09:10)
--- NOTE | 2018-08-29 15:46 | Internal Medicine Prog Note ---
Internal Medicine Subjective - Subjective Service Date: 08/29/18 Patient seen and examined:: with staff Patient is:: awake, non-verbal, in bed, confused Per staff patient has:: no adverse event Internal Medicine Objective - Results Result Diagrams: 08/22/18 18:08/22/18 18: Recent Labs: Laboratory Last Values WBC 7.3 Th/cmm (4.8-10.8) 08/22/18 18: RBC 4.38 Mil/cmm (3.80-5.80) 08/22/18 18: Hgb 13.8 gm/dL (12-16) 08/22/18: Hct 41.0 % (41.0-60) 08/22/18: MCV 93.6 fl (80-99) 08/22/18: MCH 31.4 pg (27.0-31.0) H 08/22/18: MCHC Differential 33.6 pg (28.0-36.0) 08/22/18: RDW 14.2 % (11.5-20.0) 08/22/18: Plt Count 234 Th/cmm (150-400) 08/22/18 18: MPV 7.2 fl 08/22/18: Neutrophils % 63.9 % (40.0-80.0) 08/22/18: Lymphocytes % 26.6 % (20.0-50.0) 08/22/18: Monocytes % 7.2 % (2.0-10.0) 08/22/18: Eosinophils % 1.6 % (0.0-5.0) 08/22/18: Basophils % 0.7 % (0.0-2.0) 08/22/18 18: Sodium 139 mEq/L (136-145) 08/22/18 18: Potassium 4.3 mEq/L (3.5-5.1) 08/22/18 18: Chloride 103 mEq/L (98-107) 08/22/18: Carbon Dioxide 27.6 mEq/L (21.0-31.0) 08/22/18: Anion Gap 12.7 (7.0-16.0) 08/22/18 18: BUN 16 mg/dL (7-25) 08/22/18 18: Creatinine 0.7 mg/dL (0.7-1.3) 08/22/18 18: Est GFR ( Amer) TNP 08/22/18 18: Est GFR (Non-Af Amer) TNP 08/22/18 18: BUN/Creatinine Ratio 22.9 08/22/18 18: Glucose 93 mg/dL (70-105) 08/22/18 18: Calcium 9.1 mg/dL (8.6-10.3) 08/22/18: Phosphorus 3.4 mg/dL (2.5-5.0) 08/22/18: Magnesium 2.2 mg/dL (1.9-2.7) 08/22/18: Total Bilirubin 0.3 mg/dL (0.3-1.0) 08/22/18: AST 12 U/L (13-39) L 08/22/18: ALT 10 U/L (7-52) 08/22/18: Alkaline Phosphatase 69 U/L (34-104) 08/22/18: Total Protein 7.0 gm/dL (6.0-8.3) 08/22/18: Albumin 3.7 gm/dL (4.2-5.5) L 08/22/18: Globulin 3.3 gm/dL 08/22/18: Albumin/Globulin Ratio 1.1 (1.0-1.8) 08/22/18 18: Triglycerides 196 mg/dL (<150) H 08/22/18 18: Cholesterol 218 mg/dL (<200) H 08/22/18 18: LDL Cholesterol Direct 138 mg/dL (75-193) 08/22/18: HDL Cholesterol 47 mg/dL (23-92) 08/22/18: TSH 1.81 uIU/ml (0.34-5.60) 08/22/18 18: Valproic Acid 14.1 ug/mL (50.0-100.0) L 08/22/18 18: - Physical Exam Vitals and I&O: Vital Signs Temp 97.4 F 08/29/18 14:00 Pulse 89 08/29/18 14:00 Resp 19 08/29/18 14:00 BP 121/63 08/29/18 14:00 Pulse Ox 97 08/29/18 14:00 Intake & Output 08/28/18 08/29/18 08/29/18 18:59 06:59 18:59 Intake Total 1200 240 Balance 1200 240 Intake: Oral 1200 240 Other: # Voids 2 # Bowel Movements 1 Stool Characteristics Soft Soft Active Medications: Current Medications Acetaminophen (Tylenol) 650 mg PO Q4H PRN PRN Reason: Mild Pain / Temp above 100 Stop: 10/21/18 21:52 Aspirin (Aspirin Chewable) 81 mg PO DAILY [facility] Stop: 10/22/18 08:59 Last Admin: 08/29/18 09:10 Dose: 81 mg Calcium/Vitamin D (Oscal W/Vitamin D) 1 tab PO QPM [facility] Stop: 10/22/18 16:59 Last Admin: 08/28/18 17:13 Dose: 1 tab Carbidopa/Levodopa (Sinemet 25mg-100 Mg) 2 tab PO TID [facility] Stop: 10/22/18 08:59 Last Admin: 08/29/18 09:10 Dose: 2 tab Docusate Sodium (Colace) 100 mg PO BID [facility] Stop: 10/22/18 08:59 Last Admin: 08/29/18 09:10 Dose: 100 mg Famotidine (Pepcid) 20 mg PO DAILY [facility] Stop: 10/22/18 08:59 Last Admin: 08/29/18 09:10 Dose: 20 mg Lorazepam (Ativan) 0.5 mg PO Q4H PRN; Protocol PRN Reason: Anxiety Stop: 10/21/18 21:48 Last Admin: 08/29/18 09:10 Dose: 0.5 mg Magnesium Hydroxide (Milk Of Magnesia) 30 ml PO HS PRN PRN Reason: Constipation Stop: 10/21/18 21:55 Quetiapine Fumarate (Seroquel) 50 mg PO BID [facility]; Protocol Stop: 10/28/18 08:59 Last Admin: 08/29/18 09:10 Dose: 50 mg Valproate Sodium (Depakene) 500 mg PO BID [facility] Stop: 10/22/18 08:59 Last Admin: 08/29/18 09:11 Dose: 500 mg Zolpidem Tartrate (Ambien) 5 mg PO HS PRN PRN Reason: Insomnia Stop: 10/21/18 21:48 Last Admin: 08/28/18 20:40 Dose: 5 mg General: demented HEENT: NC/AT, PERRLA, EOMI, anicteric sclerae, throat clear Neck: Supple, No JVD, No thyromegaly, +2 carotid pulse wo bruit, No LAD Lungs: CTAB Cardiovascular: RRR, Normal S1, Normal S2, without murmur Abdomen: soft, non-tender, non-distended Extremities: clear Neurological: no change - Procedures Procedures: Procedures Procedure Code Date CHANGE FEEDING DEVICE IN UP INTEST TRACT, CYLINDER BLOCK MECHANIC APPROACH [id number] 09/01/17 GROUP PSYCHOTHERAPY 49221 11/29/15 GROUP PSYCHOTHERAPY GZHZZZZ 11/29/15 OTHER GROUP THERAPY 94.44 01/15/13 RECREATIONAL THERAPY 93.81 05/12/12 Internal Medicine Assmt/Plan - Assessment Assessment: 1.PARKINSON DISEASE. 2.DJD. 3.DEMENTIA. 4.PSYCHSIS. - Plan Plan: CONTINUE ON CURRENT MEDICATION AND DIET. Nutritional Asmnt/Malnutr-PDOC - Dietary Evaluation Malnutrition Findings (Please click <Entered> for more info): Nutritional Asmnt/Malnutrition Start: 08/26/18 13: 53 Text: Status: Complete Freq: Protocol: Document 08/26/18 13:53 LCHENG (Rec: 08/26/18 14:14 [email or web address]) Nutritional Asmnt/Malnutrition Patient General Information Nutritional Screening Moderate Risk Diagnosis psychosis Pertinent Medical Hx/Surgical Hx DM, dyslipidemia, PUD/GERD, thyroid disorder, dementia, alzheimer/s, parkinson/s, polymyalgia rheumatica, schizoaffective disorder, neuropathy, psychosis Subjective Information Pt seen eating in dining room, very confused with unclear speech. Verified pt consumed 100% of lunch today. Per EMR, PO intake mostly 75-100%. Current Diet Order/ Nutrition Support CCHO 90gm, puree, large portions, HPN three times a day for supplement Pertinent Medications oscal w/vit D, colace, pepcid, seroquel Pertinent Labs 08/22 Alb 3.7, glucose 93 Nutritional Hx/Data Height 1.83 m Height (Calculated Centimeters) 182.9 Current Weight (lbs) 62.596 kg Weight (Calculated Kilograms) 62.6 Weight (Calculated Grams) 99073.7 [place] Body Weight 178 Body Mass Index (BMI) 18.7 Weight Status Approriate GI Symptoms GI Symptoms None Last BM 08/25 x 2 Difficult in: None Skin Integrity/Comment: intact Current %PO Good (75-100%) Estimated Nutritional Goals BEE in Kcals: Using Current wt Calories/Kcals/Kg 27-32 Kcals Calculated 9263-5815 Protein: Using Current wt Protein g/k-1.2 Protein Calculated 63-76 Fluid: ml 1700-2015ml (1ml/kcal) Nutritional Problem No current Nutrition Prob Problem N/A Malnutrition Alert Is there a minimum of two criteria No selected? Query Text:Check all the applicable criteria. A minimum of two criteria are recommended for diagnosis of either severe or non-severe malnutrition. Malnutrition Related to Morbid Obesity Malnutrition related to morbid obesity No Intervention/Recommendation Comments 1. Recommend regular diet for liberalization d/t glucose WNL and pt is not on diabetic medication. 2. Monitor PO intake, wt, labs and skin integrity 3. F/U as low risk in 7 days, 09/02 Expected Outcomes/Goals Expected Outcomes/Goals 1. PO intake to meet at least 75% of nutritional needs. 2. Wt stability, skin to remain intact, labs to approach WNL.
[2018-08-29] MEDS: Calcium Carb/Vit D 500 mg/200 U Tab PO SCH (17:20)
--- NOTE | 2018-08-30 03:58 | Progress Notes ---
DATE: 08/29/2018 PSYCHIATRIC PROGRESS NOTE SUBJECTIVE: Staff was spoken to. The patient is interviewed. Mood is noted to be irritable. Affect is constricted. Coping skills are noted to be still poor. Insight and judgment are noted to be limited. The patient has been having difficult time to cope with stress. No side effects to the medications are noted. The patient has been screaming and yelling when he does not get his way. ASSESSMENT: The patient is still impulsive. PLAN: Continue the patient with supportive therapy and follow up. [facility]# [id number]
[2018-08-30] MEDS: Aspirin 81mg Chewable Tab PO SCH (09:40)
[2018-08-30] MEDS: Multivitamin w/ Minerals Tab PO SCH (09:40)
[2018-08-30] MEDS: Calcium Carb/Vit D 500 mg/200 U Tab PO SCH (17:05)
--- NOTE | 2018-08-30 18:35 | Internal Medicine Prog Note ---
Internal Medicine Subjective - Subjective Service Date: 08/30/18 Patient seen and examined:: with staff Patient is:: awake, non-verbal, in bed, confused Per staff patient has:: no adverse event Internal Medicine Objective - Results Result Diagrams: 08/22/18 18:08/22/18 18: Recent Labs: Laboratory Last Values WBC 7.3 Th/cmm (4.8-10.8) 08/22/18: RBC 4.38 Mil/cmm (3.80-5.80) 08/22/18 18: Hgb 13.8 gm/dL (12-16) 08/22/18: Hct 41.0 % (41.0-60) 08/22/18: MCV 93.6 fl (80-99) 08/22/18: MCH 31.4 pg (27.0-31.0) H 08/22/18: MCHC Differential 33.6 pg (28.0-36.0) 08/22/18: RDW 14.2 % (11.5-20.0) 08/22/18: Plt Count 234 Th/cmm (150-400) 08/22/18: MPV 7.2 fl 08/22/18: Neutrophils % 63.9 % (40.0-80.0) 08/22/18: Lymphocytes % 26.6 % (20.0-50.0) 08/22/18: Monocytes % 7.2 % (2.0-10.0) 08/22/18: Eosinophils % 1.6 % (0.0-5.0) 08/22/18: Basophils % 0.7 % (0.0-2.0) 08/22/18 18: Sodium 139 mEq/L (136-145) 08/22/18 18: Potassium 4.3 mEq/L (3.5-5.1) 08/22/18: Chloride 103 mEq/L (98-107) 08/22/18: Carbon Dioxide 27.6 mEq/L (21.0-31.0) 08/22/18: Anion Gap 12.7 (7.0-16.0) 08/22/18 18: BUN 16 mg/dL (7-25) 08/22/18 18: Creatinine 0.7 mg/dL (0.7-1.3) 08/22/18 18: Est GFR ( Amer) TNP 08/22/18 18: Est GFR (Non-Af Amer) TNP 08/22/18 18: BUN/Creatinine Ratio 22.9 08/22/18 18: Glucose 93 mg/dL (70-105) 08/22/18 18: Calcium 9.1 mg/dL (8.6-10.3) 08/22/18: Phosphorus 3.4 mg/dL (2.5-5.0) 08/22/18: Magnesium 2.2 mg/dL (1.9-2.7) 08/22/18: Total Bilirubin 0.3 mg/dL (0.3-1.0) 08/22/18: AST 12 U/L (13-39) L 08/22/18: ALT 10 U/L (7-52) 08/22/18: Alkaline Phosphatase 69 U/L (34-104) 08/22/18: Total Protein 7.0 gm/dL (6.0-8.3) 08/22/18: Albumin 3.7 gm/dL (4.2-5.5) L 08/22/18: Globulin 3.3 gm/dL 08/22/18: Albumin/Globulin Ratio 1.1 (1.0-1.8) 08/22/18 18: Triglycerides 196 mg/dL (<150) H 08/22/18 18: Cholesterol 218 mg/dL (<200) H 08/22/18 18: LDL Cholesterol Direct 138 mg/dL (75-193) 08/22/18: HDL Cholesterol 47 mg/dL (23-92) 08/22/18: TSH 1.81 uIU/ml (0.34-5.60) 08/22/18 18: Valproic Acid 14.1 ug/mL (50.0-100.0) L 08/22/18 18: - Physical Exam Vitals and I&O: Vital Signs Temp 97 F 08/30/18 14:00 Pulse 72 08/30/18 14:00 Resp 18 08/30/18 14:00 BP 106/60 08/30/18 14:00 Pulse Ox 94 08/30/18 14:00 Intake & Output 08/29/18 08/30/18 08/30/18 18:59 06:59 18:59 Intake Total 1200 120 800 Balance 1200 120 800 Intake: Oral 1200 120 800 Other: # Voids 3 4 # Bowel Movements 0 0 Stool Characteristics Soft Active Medications: Current Medications Acetaminophen (Tylenol) 650 mg PO Q4H PRN PRN Reason: Mild Pain / Temp above 100 Stop: 10/21/18 21:52 Aspirin (Aspirin Chewable) 81 mg PO DAILY [facility] Stop: 10/22/18 08:59 Last Admin: 08/30/18 09:40 Dose: 81 mg Calcium/Vitamin D (Oscal W/Vitamin D) 1 tab PO QPM [facility] Stop: 10/22/18 16:59 Last Admin: 08/30/18 17:05 Dose: 1 tab Carbidopa/Levodopa (Sinemet 25mg-100 Mg) 2 tab PO TID [facility] Stop: 10/22/18 08:59 Last Admin: 08/30/18 14:25 Dose: 2 tab Docusate Sodium (Colace) 100 mg PO BID [facility] Stop: 10/22/18 08:59 Last Admin: 08/30/18 17:05 Dose: 100 mg Famotidine (Pepcid) 20 mg PO DAILY [facility] Stop: 10/22/18 08:59 Last Admin: 08/30/18 09:40 Dose: 20 mg Magnesium Hydroxide (Milk Of Magnesia) 30 ml PO HS PRN PRN Reason: Constipation Stop: 10/21/18 21:55 Quetiapine Fumarate (Seroquel) 50 mg PO BID [facility]; Protocol Stop: 10/28/18 08:59 Last Admin: 08/30/18 17:06 Dose: 50 mg Valproate Sodium (Depakene) 500 mg PO BID [facility] Stop: 10/22/18 08:59 Last Admin: 08/30/18 17:06 Dose: 500 mg General: demented HEENT: NC/AT, PERRLA, EOMI, anicteric sclerae, throat clear Neck: Supple, No JVD, No thyromegaly, +2 carotid pulse wo bruit, No LAD Lungs: CTAB Cardiovascular: RRR, Normal S1, Normal S2, without murmur Abdomen: soft, non-tender, non-distended Extremities: clear Neurological: no change - Procedures Procedures: Procedures Procedure Code Date CHANGE FEEDING DEVICE IN UP INTEST TRACT, INSURANCE COMPLIANCE ANALYST APPROACH [id number] 09/01/17 GROUP PSYCHOTHERAPY 76734 11/29/15 GROUP PSYCHOTHERAPY GZHZZZZ 11/29/15 OTHER GROUP THERAPY 94.44 01/15/13 RECREATIONAL THERAPY 93.81 05/12/12 Internal Medicine Assmt/Plan - Assessment Assessment: 1.PARKINSON DISEASE. 2.DJD. 3.DEMENTIA. 4.PSYCHSIS. - Plan Plan: CONTINUE ON CURRENT MEDICATION AND DIET. Nutritional Asmnt/Malnutr-PDOC - Dietary Evaluation Malnutrition Findings (Please click <Entered> for more info): Nutritional Asmnt/Malnutrition Start: 08/26/18 13: 53 Text: Status: Complete Freq: Protocol: Document 08/26/18 13:53 [email or web address] (Rec: 08/26/18 14:14 [email or web address]) Nutritional Asmnt/Malnutrition Patient General Information Nutritional Screening Moderate Risk Diagnosis psychosis Pertinent Medical Hx/Surgical Hx DM, dyslipidemia, PUD/GERD, thyroid disorder, dementia, alzheimer/s, parkinson/s, polymyalgia rheumatica, schizoaffective disorder, neuropathy, psychosis Subjective Information Pt seen eating in dining room, very confused with unclear speech. Verified pt consumed 100% of lunch today. Per EMR, PO intake mostly 75-100%. Current Diet Order/ Nutrition Support CCHO 90gm, puree, large portions, HPN three times a day for supplement Pertinent Medications oscal w/vit D, colace, pepcid, seroquel Pertinent Labs 08/22 Alb 3.7, glucose 93 Nutritional Hx/Data Height 1.83 m Height (Calculated Centimeters) 182.9 Current Weight (lbs) 62.596 kg Weight (Calculated Kilograms) 62.6 Weight (Calculated Grams) 81319.7 [place] Body Weight 178 Body Mass Index (BMI) 18.7 Weight Status Approriate GI Symptoms GI Symptoms None Last BM 08/25 x 2 Difficult in: None Skin Integrity/Comment: intact Current %PO Good (75-100%) Estimated Nutritional Goals BEE in Kcals: Using Current wt Calories/Kcals/Kg 27-32 Kcals Calculated 1584-9412 Protein: Using Current wt Protein g/k-1.2 Protein Calculated 63-76 Fluid: ml 170-2015ml (1ml/kcal) Nutritional Problem No current Nutrition Prob Problem N/A Malnutrition Alert Is there a minimum of two criteria No selected? Query Text:Check all the applicable criteria. A minimum of two criteria are recommended for diagnosis of either severe or non-severe malnutrition. Malnutrition Related to Morbid Obesity Malnutrition related to morbid obesity No Intervention/Recommendation Comments 1. Recommend regular diet for liberalization d/t glucose WNL and pt is not on diabetic medication. 2. Monitor PO intake, wt, labs and skin integrity 3. F/U as low risk in 7 days, 09/02 Expected Outcomes/Goals Expected Outcomes/Goals 1. PO intake to meet at least 75% of nutritional needs. 2. Wt stability, skin to remain intact, labs to approach WNL.
[2018-08-31] MEDS: Multivitamin w/ Minerals Tab PO SCH (08:36)
[2018-08-31] MEDS: Aspirin 81mg Chewable Tab PO SCH (08:36)
--- NOTE | 2018-08-31 13:10 | Progress Notes ---
DATE: 08/31/2018 SUBJECTIVE: Staff was spoken to. The patient is interviewed. Mood is noted to be less irritable. The patient's mood swings are coming under control. Insight and judgment noted to be improving. No side effects to the medications are noted. Sleep and appetite are noted to be fair. The patient has been participating in the groups. ASSESSMENT: The patient's mood swings are coming under control. PLAN: To continue the patient with the supportive therapy and followup. [facility]# [id number]
[2018-08-31] MEDS: Calcium Carb/Vit D 500 mg/200 U Tab PO SCH (17:44)
--- NOTE | 2018-08-31 17:56 | Internal Medicine Prog Note ---
Internal Medicine Subjective - Subjective Service Date: 08/31/18 Patient seen and examined:: with staff Patient is:: awake, non-verbal, in bed, confused Per staff patient has:: no adverse event Internal Medicine Objective - Results Result Diagrams: 08/22/18 18:08/22/18 18: Recent Labs: Laboratory Last Values WBC 7.3 Th/cmm (4.8-10.8) 08/22/18: RBC 4.38 Mil/cmm (3.80-5.80) 08/22/18 18: Hgb 13.8 gm/dL (12-16) 08/22/18: Hct 41.0 % (41.0-60) 08/22/18: MCV 93.6 fl (80-99) 08/22/18: MCH 31.4 pg (27.0-31.0) H 08/22/18: MCHC Differential 33.6 pg (28.0-36.0) 08/22/18: RDW 14.2 % (11.5-20.0) 08/22/18: Plt Count 234 Th/cmm (150-400) 08/22/18: MPV 7.2 fl 08/22/18: Neutrophils % 63.9 % (40.0-80.0) 08/22/18: Lymphocytes % 26.6 % (20.0-50.0) 08/22/18: Monocytes % 7.2 % (2.0-10.0) 08/22/18: Eosinophils % 1.6 % (0.0-5.0) 08/22/18: Basophils % 0.7 % (0.0-2.0) 08/22/18 18: Sodium 139 mEq/L (136-145) 08/22/18: Potassium 4.3 mEq/L (3.5-5.1) 08/22/18: Chloride 103 mEq/L (98-107) 08/22/18: Carbon Dioxide 27.6 mEq/L (21.0-31.0) 08/22/18: Anion Gap 12.7 (7.0-16.0) 08/22/18 18: BUN 16 mg/dL (7-25) 08/22/18 18: Creatinine 0.7 mg/dL (0.7-1.3) 08/22/18 18: Est GFR ( Amer) TNP 08/22/18 18: Est GFR (Non-Af Amer) TNP 08/22/18 18: BUN/Creatinine Ratio 22.9 08/22/18 18: Glucose 93 mg/dL (70-105) 08/22/18 18: Calcium 9.1 mg/dL (8.6-10.3) 08/22/18: Phosphorus 3.4 mg/dL (2.5-5.0) 08/22/18: Magnesium 2.2 mg/dL (1.9-2.7) 08/22/18: Total Bilirubin 0.3 mg/dL (0.3-1.0) 08/22/18: AST 12 U/L (13-39) L 08/22/18: ALT 10 U/L (7-52) 08/22/18: Alkaline Phosphatase 69 U/L (34-104) 08/22/18: Total Protein 7.0 gm/dL (6.0-8.3) 08/22/18: Albumin 3.7 gm/dL (4.2-5.5) L 08/22/18: Globulin 3.3 gm/dL 08/22/18: Albumin/Globulin Ratio 1.1 (1.0-1.8) 08/22/18 18: Triglycerides 196 mg/dL (<150) H 08/22/18 18: Cholesterol 218 mg/dL (<200) H 08/22/18 18: LDL Cholesterol Direct 138 mg/dL (75-193) 08/22/18: HDL Cholesterol 47 mg/dL (23-92) 08/22/18: TSH 1.81 uIU/ml (0.34-5.60) 08/22/18 18: Valproic Acid 14.1 ug/mL (50.0-100.0) L 08/22/18 18: - Physical Exam Vitals and I&O: Vital Signs Temp 97 F 08/30/18 14:00 Pulse 72 08/30/18 14:00 Resp 20 08/31/18 07:43 BP 106/60 08/30/18 14:00 Pulse Ox 94 08/30/18 14:00 Intake & Output 08/30/18 08/31/18 08/31/18 18:59 06:59 18:59 Intake Total 800 Balance 800 Intake: Oral 800 Other: # Voids 4 # Bowel Movements 0 Active Medications: Current Medications Acetaminophen (Tylenol) 650 mg PO Q4H PRN PRN Reason: Mild Pain / Temp above 100 Stop: 10/21/18 21:52 Aspirin (Aspirin Chewable) 81 mg PO DAILY [facility] Stop: 10/22/18 08:59 Last Admin: 08/31/18 08:36 Dose: 81 mg Calcium/Vitamin D (Oscal W/Vitamin D) 1 tab PO QPM [facility] Stop: 10/22/18 16:59 Last Admin: 08/31/18 17:44 Dose: 1 tab Carbidopa/Levodopa (Sinemet 25mg-100 Mg) 2 tab PO TID [facility] Stop: 10/22/18 08:59 Last Admin: 08/31/18 13:51 Dose: 2 tab Docusate Sodium (Colace) 100 mg PO BID [facility] Stop: 10/22/18 08:59 Last Admin: 08/31/18 16:33 Dose: 100 mg Famotidine (Pepcid) 20 mg PO DAILY [facility] Stop: 10/22/18 08:59 Last Admin: 08/31/18 08:36 Dose: 20 mg Magnesium Hydroxide (Milk Of Magnesia) 30 ml PO HS PRN PRN Reason: Constipation Stop: 10/21/18 21:55 Quetiapine Fumarate (Seroquel) 50 mg PO BID [facility]; Protocol Stop: 10/28/18 08:59 Last Admin: 08/31/18 16:33 Dose: 50 mg Valproate Sodium (Depakene) 500 mg PO BID [facility] Stop: 10/22/18 08:59 Last Admin: 08/31/18 16:33 Dose: 500 mg General: demented HEENT: NC/AT, PERRLA, EOMI, anicteric sclerae, throat clear Neck: Supple, No JVD, No thyromegaly, +2 carotid pulse wo bruit, No LAD Lungs: CTAB Cardiovascular: RRR, Normal S1, Normal S2, without murmur Abdomen: soft, non-tender, non-distended Extremities: clear Neurological: no change - Procedures Procedures: Procedures Procedure Code Date CHANGE FEEDING DEVICE IN UP INTEST TRACT, THERMOSTAT REPAIRER APPROACH [id number] 09/01/17 GROUP PSYCHOTHERAPY 76589 11/29/15 GROUP PSYCHOTHERAPY [id number] 11/29/15 OTHER GROUP THERAPY 94.44 01/15/13 RECREATIONAL THERAPY 93.81 05/12/12 Internal Medicine Assmt/Plan - Assessment Assessment: 1.PARKINSON DISEASE. 2.DJD. 3.DEMENTIA. 4.PSYCHSIS. - Plan Plan: CONTINUE ON CURRENT MEDICATION AND DIET. Nutritional Asmnt/Malnutr-PDOC - Dietary Evaluation Malnutrition Findings (Please click <Entered> for more info): Nutritional Asmnt/Malnutrition Start: 08/26/18 13: 53 Text: Status: Complete Freq: Protocol: Document 08/26/18 13:53 LCLUIS FERNANDOG (Rec: 08/26/18 14:14 LCLUIS FERNANDOG [email or web address]) Nutritional Asmnt/Malnutrition Patient General Information Nutritional Screening Moderate Risk Diagnosis psychosis Pertinent Medical Hx/Surgical Hx DM, dyslipidemia, PUD/GERD, thyroid disorder, dementia, alzheimer/s, parkinson/s, polymyalgia rheumatica, schizoaffective disorder, neuropathy, psychosis Subjective Information Pt seen eating in dining room, very confused with unclear speech. Verified pt consumed 100% of lunch today. Per EMR, PO intake mostly 75-100%. Current Diet Order/ Nutrition Support CCHO 90gm, puree, large portions, HPN three times a day for supplement Pertinent Medications oscal w/vit D, colace, pepcid, seroquel Pertinent Labs 08/22 Alb 3.7, glucose 93 Nutritional Hx/Data Height 1.83 m Height (Calculated Centimeters) 182.9 Current Weight (lbs) 62.596 kg Weight (Calculated Kilograms) 62.6 Weight (Calculated Grams) 88174.7 Taylor Body Weight 178 Body Mass Index (BMI) 18.7 Weight Status Approriate GI Symptoms GI Symptoms None Last BM 08/25 x 2 Difficult in: None Skin Integrity/Comment: intact Current %PO Good (75-100%) Estimated Nutritional Goals BEE in Kcals: Using Current wt Calories/Kcals/Kg 27-32 Kcals Calculated Protein: Using Current wt Protein g/k-1.2 Protein Calculated 63-76 Fluid: ml 170-2016ml (1ml/kcal) Nutritional Problem No current Nutrition Prob Problem N/A Malnutrition Alert Is there a minimum of two criteria No selected? Query Text:Check all the applicable criteria. A minimum of two criteria are recommended for diagnosis of either severe or non-severe malnutrition. Malnutrition Related to Morbid Obesity Malnutrition related to morbid obesity No Intervention/Recommendation Comments 1. Recommend regular diet for liberalization d/t glucose WNL and pt is not on diabetic medication. 2. Monitor PO intake, wt, labs and skin integrity 3. F/U as low risk in 7 days, 09/02 Expected Outcomes/Goals Expected Outcomes/Goals 1. PO intake to meet at least 75% of nutritional needs. 2. Wt stability, skin to remain intact, labs to approach WNL.
[2018-09-01] MEDS: Aspirin 81mg Chewable Tab PO SCH (08:44)
[2018-09-01] MEDS: Multivitamin w/ Minerals Tab PO SCH (08:44)
--- NOTE | 2018-09-01 10:01 | Discharge Summary ---
DATE OF DISCHARGE: 08/31/2018 PSYCHIATRIC DISCHARGE SUMMARY IDENTIFYING DATA: The patient is a 73-year-old male, a resident of [facility]. JUSTIFICATION OF HOSPITALIZATION: The patient is admitted on a voluntary basis in view of his agitation and aggressive behavior. CHIEF COMPLAINT: "I should not be here." DIAGNOSES AT THE TIME OF ADMISSION: AXIS I: Bipolar disorder, mixed with psychotic symptoms. AXIS II: None. AXIS III: As per Dr. Mandujano. HISTORY OF PRESENT ILLNESS: Please refer the 08/23/2018 dictation done by me. PHYSICAL EXAMINATION: Done by Dr. Mandujano and is noted to be significant for Parkinson's disease and degenerative joint disease. HOSPITAL COURSE AND RESPONSE TO TREATMENT: The patient has been closely monitored. The blood work done at the time of the hospitalization had been reviewed and no major intervention was needed. Cholesterol is noted to be 218, triglycerides 196, and valproic acid level is noted to be 14.1. The patient has been closely monitored. Encouraged to participate in groups and verbalize the concerns. The patient has been placed on Seroquel which was gradually increased to 50 mg twice a day, valproic acid 500 mg twice a day. With these medications, the patient was noted to be doing fairly well and the patient was finally discharged on 09/01/2018 with the recommendation that he is going to be seeking treatment at [facility]. [facility]# [id number]
== END 2018-09-01 15:30 | DRG 885 ==
LOC: ER 17:11 → GERO 20:01
PROVIDERS: ADMIT Psychiatry & Neurology Psychiatry; ATTEND Psychiatry & Neurology Psychiatry
DX: F31.64 Bipolar disorder, current episode mixed, severe, with psychotic features (principal); G20 Parkinson's disease; F02.80 Dementia in other diseases classified elsewhere, unspecified severity, without behavioral disturbance, psychotic disturbance, mood disturbance, and anxiety; M19.90 Unspecified osteoarthritis, unspecified site; F29 Unspecified psychosis not due to a substance or known physiological condition; E11.9 Type 2 diabetes mellitus without complications; E78.5 Hyperlipidemia, unspecified; K21.9 Gastro-esophageal reflux disease without esophagitis; G30.9 Alzheimer's disease, unspecified; M35.3 Polymyalgia rheumatica; Z66 Do not resuscitate; E11.40 Type 2 diabetes mellitus with diabetic neuropathy, unspecified; E05.90 Thyrotoxicosis, unspecified without thyrotoxic crisis or storm; R13.10 Dysphagia, unspecified; Z88.2 Allergy status to sulfonamides
CPT/HCPCS: 36415-UA; 80053-TC; 80061-TC; 80164-TC; 83036-90; 83735-TC; 84100-TC; 84443-TC; 85025-TC; Z7610